=== PATIENT | male | born 1940 | race Caucasian/White ===

== ENCOUNTER 2020-06-14 08:08 | Emergency (ER) | payer MEDICARE, BC ==
[2020-06-14 08:39] VITALS: BP 127/65; PULSE 73
--- NOTE | 2020-06-14 08:45 | EDM.PDOC ---
<Harjit Holguin P - Last Filed: 06/14/20 09:11> ED HPI GENERAL MEDICAL PROBLEM - General Chief Complaint: Lower Extremity Injury/Pain Stated Complaint: pain in both legs Time Seen by Provider: 06/14/20 08:20 Source of Information: Reports: Patient, Family History Limitations: Reports: No Limitations - History of Present Illness INITIAL COMMENTS - FREE TEXT/NARRATIVE: Patient and state that his lower legs have been swelling intermittently for the last couple of weeks he saw his primary care provider Juan Francisco Sesay on Wednesday he had blood work and was given some water pills which patient said does not help with the swelling they have gotten worse in the last couple of days and is noticed that they have had redness as well that is starting to spread and increase with a little bit heat to the area. Patient states approximately 2-1/2 weeks ago that he had a infection and swelling in his hand where he was given antibiotics and it seemed to clear up but about 2 days ago he had a red patch on the bottom side of his arm start up again as well. He denies any fever chills or fatigue or feeling bad he states is just the swelling overall that is gotten worried he denies any chest pain or shortness of breath orthopnea or PND Been eating drinking normally with no issues Duration: Day(s): Location: Reports: Lower Extremity, Left, Lower Extremity, Right Severity: Mild Improves with: Reports: None Worsens with: Reports: None Associated Symptoms: Reports: No Other Symptoms, Rash. 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 ) Bilateral Lower Leg Pain Score (Numeric/FACES): 8 - Related Data Allergies Allergy/AdvReac Type Severity Reaction Status Date / Time No Known Allergies Allergy Verified 06/14/20 08:21 Home Meds: Home Meds Alum Hydrox/Mag Hydrox/Simeth [Maalox Advanced] 5 ml PO Q4H PRN 03/12/14 [History] Calcium Carbonate [Calcium] 500 mg PO DAILY 03/12/14 [History] Cholecalciferol (Vitamin D3) [Vitamin D3] 5,000 unit PO DAILY 03/12/14 [History] Docusate Sodium [Colace] 100 mg PO BID 03/12/14 [History] Esomeprazole [NexIUM] 40 mg PO DAILY 03/12/14 [History] Metoprolol Tartrate [Lopressor] 12.5 mg PO BEDTIME 03/12/14 [History] Nitroglycerin [Nitrostat] 0.4 mg SL ASDIRECTED PRN 03/12/14 [History] azaTHIOprine [Imuran] 150 mg PO BID 03/12/14 [History] Propylene Glycol/PEG 400/Pf [Systane 0.3-0.4% Eye Drops] 1 drop EYEBOTH Q4H PRN 09/29/16 [History] Cyanocobalamin (Vitamin B-12) [B-12] 1,000 mcg PO DAILY 03/12/17 [History] Hydrocodone/Acetaminophen [Hydrocodon-Acetaminophn 10-325] 1 tab PO Q4H PRN 03/12/17 [History] Oxybutynin [Oxybutynin ER] 15 mg PO DAILY 09/21/18 [History] Warfarin [Coumadin] 1 tab PO DAILY 09/21/18 [History] atorvaSTATin Calcium [Lipitor] 1 tab PO DAILY 09/21/18 [History] valACYclovir HCl [Valtrex] 1 tab PO BID 09/21/18 [History] Ascorbic Acid 500 mg PO DAILY 02/15/19 [History] Venetoclax [Venclexta] 200 mg PO DAILY 02/15/19 [History] Past Medical History HEENT History: Reports: Cataract Other HEENT History: TEAR FILM INSUFFICIENCY. HYPERMETROPIA. PRESBYOPIA Cardiovascular History: Reports: Afib, High Cholesterol, Hypertension Other Cardiovascular History: tricuspid insufficiency. ANKLE EDEMA. CORONARY ARTHEROSCLEROSIS. CAROTID STENOSIS Respiratory History: Reports: COPD, Sleep Apnea Other Respiratory History: EXERTIONAL DYSPNEA. LOCULATED PLEURAL EFFUSION Gastrointestinal History: Reports: Colon Polyp, GI Bleed Other Gastrointestinal History: GASTRIC ULCER Genitourinary History: Reports: BPH Other Genitourinary History: URINARY URGENCY Musculoskeletal History: Reports: Arthritis Other Musculoskeletal History: OSTEOPENIA. RIGHT KNEE PAIN. SI PAIN. DEGENERATIVE JOINT DISEASE. SACROILIITIS. DEGENERATIVE LUMBAR SPINAL STENOSIS Neurological History: Reports: None Other Neuro History: POLYNEUROPATHY. SHINGLES. POLYNEUROPATHY. BENIGN THYMOMA. MYASTHENIA GRAVIS Other Psychiatric History: CHRONIC FATIGUE. OBESITY Endocrine/Metabolic History: Reports: Diabetes, Type II Other Endocrine/Metabolic History: GLUCOSE INTOLERANCE Hematologic History: Reports: Anemia, B12 Deficiency, Other (See Below) Other Hematologic History: lymphadenopathy noted on MRI. macrocytic anemia. anemia in neoplastic disease. 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 Other Dermatologic History: ACTINIC KERATOSES - Past Surgical History Head Surgeries/Procedures: Reports: None HEENT Surgical History: Reports: Adenoidectomy, Tonsillectomy Cardiovascular Surgical History: Reports: Coronary Artery Bypass GI Surgical History: Reports: Appendectomy, Cholecystectomy Other Neurological Surgeries/Procedures: THYMECTOMY Musculoskeletal Surgical History: Reports: Knee Replacement Other Musculoskeletal Surgeries/Procedures:: laminectomy Social & Family History - Family History Cardiac: Reports: CAD, Hypertension, [place] Endocrine/Metabolic: Reports: Diabetes, type II ED ROS GENERAL - Review of Systems Review Of Systems: See Below Constitutional: Reports: No Symptoms. Denies: Fever, Chills, Malaise, Weakness, Decreased Appetite, Weight Loss, Weight Gain HEENT: Reports: No Symptoms Respiratory: Reports: No Symptoms Cardiovascular: Reports: No Symptoms Endocrine: Reports: No Symptoms GI/Abdominal: Reports: No Symptoms : Reports: No Symptoms Musculoskeletal: Reports: Other (Bilateral leg swelling) Skin: Reports: Rash, Erythema Neurological: Reports: No Symptoms Psychiatric: Reports: No Symptoms Hematologic/Lymphatic: Reports: No Symptoms, Other (PT with a history of CLL) ED EXAM, GENERAL - Physical Exam Exam: See Below Exam Limited By: No Limitations General Appearance: Alert, WD/WN, No Apparent Distress, Other (Patient is alert oriented x4 with normal conversation logical thought process very friendly answers all questions follows all commands) Nose: Normal Inspection, Normal Mucosa, No Blood Throat/Mouth: Normal Inspection, Normal Lips, Normal Teeth, Normal Gums, Normal Oropharynx, Normal Voice, No Airway Compromise Head: Atraumatic, Normocephalic Neck: Normal Inspection, Supple, Non-Tender, Full Range of Motion Respiratory/Chest: No Respiratory Distress, Lungs Clear, Normal Breath Sounds, No Accessory Muscle Use, Chest Non-Tender Cardiovascular: Normal Peripheral Pulses, Regular Rate, Rhythm, No Gallop, No JVD, No Murmur, No Rub. No: No Edema GI/Abdominal: Normal Bowel Sounds, Soft, Non-Tender, No Organomegaly, No Distention Extremities: Normal Range of Motion, Normal Capillary Refill, Other (Patient has bilateral +1 pedal edema to the feet and legs with noted diffuse maculopapular rash across the feet up to the midline of the ankles although the left has noted streaking from the ankle up the lateral and posterior part of the calf midway the calf is equal to the right there is no excessive edema there is no tenderness to palpation over the posterior aspect there is no adenopathy noted patient is currently on Coumadin secondary to a history of A. fib in the past). No: Normal Inspection, Non-Tender, No Pedal Edema Neurological: Alert, Oriented, CN II-XII Intact, Normal Cognition, Normal Gait, No Motor/Sensory Deficits Psychiatric: Normal Affect, Normal Mood Skin Exam: Warm, Dry, Intact, Normal Color, Erythema. No: No Rash Lymphatic: No Adenopathy Course - Vital Signs Text/Narrative:: CBC BMP coags blood cultures x2 CBC BMP within normal limits patient has a history of CLL Patient is not therapeutic on Coumadin and at this time with the signs and symptoms of possible DVT to the left lower extremity I will send him for outpatient ultrasound at [place] he has one scheduled at 130 today. This is also secondary to the patient does not wish to take any extra medicine such as a Lovenox bridge until Wednesday INR 1.8 patient was instructed to take 1 extra pill of warfarin today and 1 and half extra tablets Wednesday and rechecked Wednesday Patient and agree with disposition further imaging state they will follow- up with her primary care provider or return to emergency room if anything gets worse Departure - Departure Time of Disposition: 15:00 Disposition: Home, Self-Care 01 Condition: Good Clinical Impression: Phlebitis, Pedal edema, Subtherapeutic international normalized ratio (INR) - Discharge Information Instructions: Phlebitis, [id number] Referrals: Renetta Sesay, [Primary Care Provider] - Forms: ED Department Discharge Additional Instructions: Go to [facility] go to the radiological department for an ultrasound of your left leg at 1:30 PM today do not miss this appointment. Take all medication as directed start your doxycycline 100 mg 1 p.o. every 12 hours for 12 days make sure you take your Lasix as directed by your primary care provider Finish all antibiotics Follow-up with your primary care doctor Wednesday Return to the emergency room if anything changes or gets worse Sepsis Event Note (ED) - Evaluation Sepsis Screening Result: No Definite Risk - Problem List & Annotations (1) Pedal edema SNOMED Code(s): 700644967 Code(s): R60.0 - LOCALIZED EDEMA Status: Acute (2) Phlebitis SNOMED Code(s): 73049161 Code(s): I80.9 - PHLEBITIS AND THROMBOPHLEBITIS OF UNSPECIFIED SITE Status: Acute (3) Subtherapeutic international normalized ratio (INR) SNOMED Code(s): 049452026, 529695129 Code(s): R79.1 - ABNORMAL COAGULATION PROFILE Status: Acute <Harjit Ross - Last Filed: 06/14/20 14:56> Course - Vital Signs Last Recorded V/S: Last Vital Signs Temp 98.4 F 06/14/20 08:26 Pulse 73 06/14/20 08:26 Resp 18 06/14/20 08:26 BP 127/65 06/14/20 08:26 Pulse Ox 96 06/14/20 08:26 - Orders/Labs/Meds Orders: Active Orders 24 hr Category Date Time Status CULTURE BLOOD [BC] Stat Lab 06/14/20 08:32 Results CULTURE BLOOD [BC] Stat Lab 06/14/20 08:39 Received Labs: Laboratory Tests 06/14/20 06/14/20 06/14/20 Range/Units 08:32 08:32 08:32 WBC 4.2 (4.0-10.0) x10^3/uL RBC 3.77 L (4.5-6.0) x10^6/uL Hgb 13.4 L (14.0-18.0) g/dL Hct 38.1 L (40.0-52.0) % MCV 101.1 H (78.0-93.0) fL MCH 35.5 H (26.0-32.0) pg MCHC 35.2 (32.0-36.0) g/dL RDW Coeff of Bonnie 13.3 (10.0-15.0) % Plt Count 92 L (130-400) x10^3/uL Neut % (Auto) 62.6 (50.0-80.0) % Lymph % (Auto) 20.9 L (25.0-50.0) % [place] % (Auto) 16.3 H (2.0-11.0) % Eos % (Auto) 0.0 (0.0-4.0) % Baso % (Auto) 0.2 (0.2-1.2) % PT 19.5 H (9.5-12.3) SEC INR 1.8 L (2.0-3.5) Sodium 141 (136-145) mmol/L Potassium 3.7 (3.5-5.1) mmol/L Chloride 104 (98-107) mmol/L Carbon Dioxide 31 (21-32) mmol/L Anion Gap 9.7 L (10-20) mmol/L BUN 16 (7-18) mg/dL Creatinine 0.8 (0.70-1.30) mg/dL Est Cr Clr Drug Dosing 80.45 mL/min Estimated GFR (MDRD) > 60 Glucose 117 H (74-106) mg/dL Calcium 8.3 L (8.5-10.1) mg/dL - Re-Assessments/Exams Free Text/Narrative Re-Assessment/Exam: 06/14/20 14:56 I followed up after the patient was discharged and his Venous Duplex lower extremity Left was negative for thrombus. I called and updated the patient as well. Sepsis Event Note (ED) - Focused Exam Vital Signs: Vital Signs Temp Pulse Resp BP Pulse Ox 06/14/20 08:26 98.4 F 73 18 127/65 96
[2020-06-14 08:58] LABS: ANION GAP 9.7 mmol/L (10-20); CHLORIDE,CL 104 mmol/L (98-107); SODIUM,NA 141 mmol/L (136-145)
== END 2020-06-14 09:27 | disposition home or self-care (01) ==
LOC: VM.ED 08:08
DX: I80.9 Phlebitis and thrombophlebitis of unspecified site (principal); R79.1 Abnormal coagulation profile; I10 Essential (primary) hypertension; E78.00 Pure hypercholesterolemia, unspecified; I48.91 Unspecified atrial fibrillation; J45.909 Unspecified asthma, uncomplicated; E11.9 Type 2 diabetes mellitus without complications; E11.42 Type 2 diabetes mellitus with diabetic polyneuropathy; Z79.01 Long term (current) use of anticoagulants; Z79.899 Other long term (current) drug therapy
CPT/HCPCS: 36415; 80048; 85025; 85610; 87040; 99283; 99284-GF

== ENCOUNTER 2020-10-16 16:33 | Emergency (ER) | payer MEDICARE, BC ==
[2020-10-16] MEDS ORDERED: Sodium Chloride 0.9% 10 ML Syringe FLUSH PRN (17:23)
--- NOTE | 2020-10-16 17:55 | CR ---
[id number] RAD/RAD Chest PA And Lateral EXAM: RAD Chest PA And Lateral INDICATION: CP, SHORT OF BREATH. COMPARISON: Multiple prior CT examinations, most recent from August 30, 2020. Most recent radiograph from August 09, 2020. DISCUSSION: Increasing left midlung and right lung base opacification compared to prior radiograph in July 2020. Additionally, there is blunting of the bilateral costophrenic sulci, consistent with small effusions. CT from August 30, 2020 demonstrated opacification in the left upper and lower lobes as well as a small right pleural effusion. 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 IMPRESSION: Worsening bilateral airspace disease and compared to CT from August 2020. Other findings are described above. Frank Manuel MD 10/16/20 [id number] Thank you for allowing us to participate in the care of your patient.
[2020-10-16 17:57] LABS: CHLORIDE,CL 102 mmol/L (98-107); SODIUM,NA 137 mmol/L (136-145)
[2020-10-16 17:59] LABS: ANION GAP 11.5 mmol/L (10-20)
[2020-10-16] MEDS ORDERED: Furosemide 40 MG/4 ML VIAL IV ONE (18:18)
[2020-10-16] MEDS ORDERED: Doxycycline 100 MG Cap PO ONE (18:18)
[2020-10-16 18:34] LABS: PTT,PARTIAL THROMBOPLSTIN TIME 53.2 SEC (25.6-32.8)
[2020-10-16 18:35] VITALS: BP 137/68; PULSE 101
--- NOTE | 2020-10-16 19:01 | EDM.PDOC ---
ED HPI GENERAL MEDICAL PROBLEM - General Chief Complaint: Respiratory Problem Stated Complaint: SOB, BODY ACHES, FEVER, CHILLS, CHEST HURTING Time Seen by Provider: 10/16/20 16:40 Source of Information: Reports: Patient History Limitations: Reports: No Limitations - History of Present Illness INITIAL COMMENTS - FREE TEXT/NARRATIVE: Patient comes emergency department today with complaints of fever and shortness of breath. Patient has a history of CLL. Since Wednesday he has had fever over the weekend. He has generalized malaise and fatigue and some body aches. He has had increasing shortness of breath over the week to the point where he is short of breath at rest. He has noticed quite a bit of swelling to his bilateral lower extremities more on the right than the left which is chronic for him. He denies any pain in his lower extremities. He denies any pain in his chest. He denies any syncope or palpitations. He has checked his fever at home and has been up to 102 has been taking Tylenol with improvement of it. He did have a Covid test in the clinic on Wednesday but he has not received his results. He has no loss of taste or smell. No abdominal pain nausea or vomiting. No hematuria dysuria or urinary frequency. No diarrhea. He has no rash. Denies any Covid exposure. No sore throat. He did get his influenza vaccine this year. He relates that this feels just like a pneumonia that he had about 3 months ago. - Related Data Allergies Allergy/AdvReac Type Severity Reaction Status Date / Time No Known Allergies Allergy Verified 10/16/20 17:10 Home Meds: Home Meds Alum Hydrox/Mag Hydrox/Simeth [Maalox Advanced] 5 ml PO Q4H PRN 03/12/14 [History] Cholecalciferol (Vitamin D3) [Vitamin D3] 5,000 unit PO DAILY 03/12/14 [History] Docusate Sodium [Colace] 100 mg PO DAILY PRN 03/12/14 [History] Esomeprazole [NexIUM] 40 mg PO ASDIRECTED 03/12/14 [History] Metoprolol Tartrate [Lopressor] 12.5 mg PO BEDTIME 03/12/14 [History] Nitroglycerin [Nitrostat] 0.4 mg SL ASDIRECTED PRN 03/12/14 [History] azaTHIOprine [Imuran] 150 mg PO BID 03/12/14 [History] Propylene Glycol/PEG 400/Pf [Systane 0.3-0.4% Eye Drops] 1 drop EYEBOTH Q4H PRN 09/29/16 [History] Cyanocobalamin (Vitamin B-12) [B-12] 1,000 mcg PO DAILY 03/12/17 [History] Hydrocodone/Acetaminophen [Hydrocodon-Acetaminophn 10-325] 1 tab PO Q4H PRN 03/12/17 [History] Oxybutynin [Oxybutynin ER] 15 mg PO DAILY 09/21/18 [History] Warfarin [Coumadin] 1 tab PO DAILY 09/21/18 [History] atorvaSTATin Calcium [Lipitor] 1 tab PO DAILY 09/21/18 [History] valACYclovir HCl [Valtrex] 1 tab PO BID 09/21/18 [History] Acalabrutinib [Calquence] 100 mg PO BID 10/16/20 [History] Ascorbic Acid [Vitamin C] 500 mg PO DAILY 10/16/20 [History] Calcium Carbonate/Vitamin D3 [Oyster Shell Calcium-Vit D Tab] 1 each PO DAILY 10/16/20 [History] Diphenoxylate HCl/Atropine [Lomotil] 1 tab PO Q6H PRN 10/16/20 [History] Doxycycline [Vibramycin] 100 mg PO BID #20 cap 10/16/20 [Rx] Furosemide [Lasix] 20 mg PO DAILY #2 tab 10/16/20 [Rx] Multivitamin [Multivitamins] 1 each PO DAILY 10/16/20 [History] Ondansetron [Ondansetron ODT] 4 mg PO Q6H PRN 10/16/20 [History] Phytonadione [Vitamin K] 100 mcg PO ASDIRECTED 10/16/20 [History] Prochlorperazine [Compazine] 10 mg PO Q6H PRN 10/16/20 [History] Past Medical History HEENT History: Reports: Cataract Other HEENT History: TEAR FILM INSUFFICIENCY. HYPERMETROPIA. PRESBYOPIA Cardiovascular History: Reports: Afib, High Cholesterol, Hypertension Other Cardiovascular History: tricuspid insufficiency. ANKLE EDEMA. CORONARY ARTHEROSCLEROSIS. CAROTID STENOSIS Respiratory History: Reports: COPD, Sleep Apnea Other Respiratory History: EXERTIONAL DYSPNEA. LOCULATED PLEURAL EFFUSION Gastrointestinal History: Reports: Colon Polyp, GI Bleed Other Gastrointestinal History: GASTRIC ULCER Genitourinary History: Reports: BPH Other Genitourinary History: URINARY URGENCY Musculoskeletal History: Reports: Arthritis Other Musculoskeletal History: OSTEOPENIA. RIGHT KNEE PAIN. SI PAIN. DEGENERATIVE JOINT DISEASE. SACROILIITIS. DEGENERATIVE LUMBAR SPINAL STENOSIS Neurological History: Reports: None Other Neuro History: POLYNEUROPATHY. SHINGLES. POLYNEUROPATHY. BENIGN THYMOMA. MYASTHENIA GRAVIS Other Psychiatric History: CHRONIC FATIGUE. OBESITY Endocrine/Metabolic History: Reports: Diabetes, Type II Other Endocrine/Metabolic History: GLUCOSE INTOLERANCE Hematologic History: Reports: Anemia, B12 Deficiency, Other (See Below) Other Hematologic History: lymphadenopathy noted on MRI. macrocytic anemia. anemia in neoplastic disease. 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 Other Dermatologic History: ACTINIC KERATOSES - Past Surgical History Head Surgeries/Procedures: Reports: None HEENT Surgical History: Reports: Adenoidectomy, Tonsillectomy Cardiovascular Surgical History: Reports: Coronary Artery Bypass GI Surgical History: Reports: Appendectomy, Cholecystectomy Other Neurological Surgeries/Procedures: THYMECTOMY Musculoskeletal Surgical History: Reports: Knee Replacement Other Musculoskeletal Surgeries/Procedures:: laminectomy Social & Family History - Family History Family Medical History: No Pertinent Family History Cardiac: Reports: CAD, Hypertension, [place] Endocrine/Metabolic: Reports: Diabetes, type II - Tobacco Use Tobacco Use Status *Q: Unknown Ever Used Tobacco - Caffeine Use Caffeine Use: Reports: None ED ROS GENERAL - Review of Systems Review Of Systems: Comprehensive ROS is negative, except as noted in HPI. ED EXAM, GENERAL - Physical Exam Exam: See Below Exam Limited By: No Limitations General Appearance: Alert, WD/WN, No Apparent Distress Eye Exam: Bilateral Eye: EOMI, PERRL Ears: Normal External Exam, Normal TMs Nose: Normal Inspection, Normal Mucosa Throat/Mouth: Normal Inspection, Normal Lips, Normal Oropharynx Head: Atraumatic, Normocephalic Neck: Normal Inspection, Supple, Non-Tender Respiratory/Chest: No Respiratory Distress, Chest Non-Tender, Decreased Breath Sounds (Left mid lobe), Crackles (Fine inspiratory opening crackles on the left none on the right), Wheezing (Mild expiratory wheezing on the left none on the right.). No: Rhonchi Cardiovascular: Normal Peripheral Pulses, Regular Rate, Rhythm Peripheral Pulses: 2+: Radial (L), Radial (R), Posterior Tibial (L), Posterior Tibial (R), Dorsalis Pedis (L), Dorsalis Pedis (R) GI/Abdominal: Normal Bowel Sounds, Soft, Non-Tender (Male) Exam: Deferred Rectal (Males) Exam: Deferred Back Exam: Normal Inspection, Full Range of Motion Extremities: Normal Inspection, Normal Range of Motion, Normal Capillary Refill, Pedal Edema (1+ left lower extremity 2+ right lower extremity no tenderness erythema injection. Negative Homans' sign bilaterally.) Neurological: Alert, CN II-XII Intact, Normal Cognition, Normal Reflexes, No Motor/Sensory Deficits Psychiatric: Normal Affect, Normal Mood Skin Exam: Warm, Dry, Normal Color, No Rash #1 Interpretation EKG Date: 10/16/20 Time: 08:10 Rhythm: NSR Rate (Beats/Min): 103 [place]: Normal P-Wave: Present QRS: RBBB ST-T: Normal QT: Normal Comparison: No Change Course - Vital Signs Last Recorded V/S: Last Vital Signs Temp 99.7 F 10/16/20 18:17 Pulse 101 H 10/16/20 18:17 Resp 22 H 10/16/20 18:17 BP 137/68 10/16/20 18:17 Pulse Ox 96 10/16/20 18:17 - Orders/Labs/Meds Orders: Active Orders 24 hr Category Date Time Status CULTURE BLOOD [BC] Stat Lab 10/16/20 18:05 Received CULTURE BLOOD [BC] Stat Lab 10/16/20 18:09 Received PROCALCITONIN [REF] Stat Lab 10/16/20 16:40 Received Blood Culture x2 Reflex Set [OM.PC] Stat Oth 10/16/20 17:24 Ordered Peripheral IV Insertion Adult [OM.PC] Stat Oth 10/16/20 17:23 Ordered Labs: Laboratory Tests 10/16/20 10/16/20 10/16/20 Range/Units 16:40 16:40 16:40 WBC 15.7 H (4.0-10.0) x10^3/uL RBC 3.37 L (4.5-6.0) x10^6/uL Hgb 11.7 L D (14.0-18.0) g/dL Hct 36.1 L (40.0-52.0) % MCV 107.1 H D (78.0-93.0) fL MCH 34.7 H (26.0-32.0) pg MCHC 32.4 (32.0-36.0) g/dL RDW Coeff of Bonnie 14.4 (10.0-15.0) % Plt Count 108 L (130-400) x10^3/uL Neut % (Auto) 75.0 (50.0-80.0) % Lymph % (Auto) 13.3 L (25.0-50.0) % [place] % (Auto) 11.3 H (2.0-11.0) % Eos % (Auto) 0.3 (0.0-4.0) % Baso % (Auto) 0.1 L (0.2-1.2) % PT (9.5-12.3) SEC INR (2.0-3.5) APTT (25.6-32.8) SEC Sodium 137 (136-145) mmol/L Potassium 3.5 (3.5-5.1) mmol/L Chloride 102 (98-107) mmol/L Carbon Dioxide 27 (21-32) mmol/L Anion Gap 11.5 (10-20) mmol/L BUN 17 (7-18) mg/dL Creatinine 1.0 (0.70-1.30) mg/dL Est Cr Clr Drug Dosing TNP Estimated GFR (MDRD) > 60 Glucose 107 H (74-106) mg/dL Lactic Acid 1.5 (0.4-2.0) mmol/L Calcium 8.6 (8.5-10.1) mg/dL Corrected Calcium 9.56 (8.5-10.1) mg/dL Total Bilirubin 0.8 (0.2-1.0) mg/dL AST 25 (15-37) U/L ALT 23 (16-63) U/L Alkaline Phosphatase 104 (46-116) U/L Troponin I < 0.017 (<=0.056) ng/mL C-Reactive Protein 32.7 H (<=0.9) mg/dL NT-Pro-B Natriuret Pep 3793 H (<=450) pg/mL Total Protein 6.8 (6.4-8.2) g/dL Albumin 2.8 L (3.4-5.0) g/dL Globulin 4.0 Albumin/Globulin Ratio 0.70 SARS CoV-2 RNA Rapid PINEDA (NEGATIVE) 10/16/20 10/16/20 Range/Units 16:50 16:50 WBC (4.0-10.0) x10^3/uL RBC (4.5-6.0) x10^6/uL Hgb (14.0-18.0) g/dL Hct (40.0-52.0) % MCV (78.0-93.0) fL MCH (26.0-32.0) pg MCHC (32.0-36.0) g/dL RDW Coeff of Bonnie (10.0-15.0) % Plt Count (130-400) x10^3/uL Neut % (Auto) (50.0-80.0) % Lymph % (Auto) (25.0-50.0) % [place] % (Auto) (2.0-11.0) % Eos % (Auto) (0.0-4.0) % Baso % (Auto) (0.2-1.2) % PT 32.4 H D (9.5-12.3) SEC INR 3.1 (2.0-3.5) APTT 53.2 H (25.6-32.8) SEC Sodium (136-145) mmol/L Potassium (3.5-5.1) mmol/L Chloride (98-107) mmol/L Carbon Dioxide (21-32) mmol/L Anion Gap (10-20) mmol/L BUN (7-18) mg/dL Creatinine (0.70-1.30) mg/dL Est Cr Clr Drug Dosing Estimated GFR (MDRD) Glucose (74-106) mg/dL Lactic Acid (0.4-2.0) mmol/L Calcium (8.5-10.1) mg/dL Corrected Calcium (8.5-10.1) mg/dL Total Bilirubin (0.2-1.0) mg/dL AST (15-37) U/L ALT (16-63) U/L Alkaline Phosphatase (46-116) U/L Troponin I (<=0.056) ng/mL C-Reactive Protein (<=0.9) mg/dL NT-Pro-B Natriuret Pep (<=450) pg/mL Total Protein (6.4-8.2) g/dL Albumin (3.4-5.0) g/dL Globulin Albumin/Globulin Ratio SARS CoV-2 RNA Rapid PINEDA Negative (NEGATIVE) Meds: Medications Discontinued Medications Generic Name Dose Route Start Last Admin Trade Name Freq PRN Reason Stop Dose Admin Doxycycline Hyclate 100 mg 10/16/20 18:18 10/16/20 18:32 Vibramycin PO 10/16/20 18:19 100 mg ONETIME ONE Administration Doxycycline Monohydrate 1 packet 10/16/20 19:05 10/16/20 19:08 Take Home: Doxycycline 100 Mg, 4 Tab Pack PO 10/16/20 19:06 1 packet ONETIME ONE Administration Furosemide 40 mg 10/16/20 18:18 10/16/20 18:32 Lasix IV 10/16/20 18:19 40 mg ONETIME ONE Administration Sodium Chloride 10 ml 10/16/20 17:23 Saline Flush FLUSH ASDIRECTED PRN Keep Vein Open - Radiology Interpretation Free Text/Narrative:: Chest x-ray per radiology shows increasing left midlung and right lung base opacification compared to prior radiograph in 1999. Small effusions bilaterally. - Re-Assessments/Exams Free Text/Narrative Re-Assessment/Exam: 10/16/20 Rapid Covid test was negative. The patient is not requiring any oxygenation. Labs are drawn. Chest x-ray per radiology shows worsening bilateral airspace disease when compared from CT of 2019 in August. White blood cell count of 15.7. INR 3.1. Troponin less than 0.017. CRP 32. Pro BNP 3793 has not had an elevated proBNP in her laboratory evaluation that I can find. Cultures pending x2. Procalcitonin pending. This patient clearly has recurrence of pneumonia bilaterally on his chest x-ray. His lactic acid is normal. He does have a history of CLL. His Covid screen is negative. He is not requiring any oxygen at this time. His proBNP is mildly elevated and he definitely has some edema in his lower extremities. He was given 40 mg of Lasix in the emergency department had quite a bit of urinary output and states that his shortness of breath was much improved. We will put him on a low-dose of Lasix 20 mg a day for the next 2 days and have him follow- up in the clinic in the near future. He is in no respiratory distress. We will start him on doxycycline 100 mg p.o. twice daily for the next 10 days. With his history of CLL I will have him follow-up closely in the clinic on Wednesday or Wednesday. Anything new or worse he is to recheck. He is comfortable with this plan and his questions are answered. 10/17/20 15:47 Departure - Departure Time of Disposition: 18:56 Disposition: Home, Self-Care 01 Clinical Impression: CLL (chronic lymphocytic leukemia) Pneumonia Qualifiers: Pneumonia type: due to unspecified organism Laterality: left Lung location: lower lobe of lung Qualified Code(s): J18.9 - Pneumonia, unspecified organism Congestive heart failure Qualifiers: Heart failure type: unspecified Heart failure chronicity: acute Qualified Code(s): I50.9 - Heart failure, unspecified - Discharge Information Prescriptions: Furosemide [Lasix] 20 mg PO DAILY #2 tab Doxycycline [Vibramycin] 100 mg PO BID #20 cap Instructions: Heart Failure, Self Care, [id number], Heart Failure, Diagnosis, [id number], Community-Acquired Pneumonia, Adult, [id number] Referrals: Renetta Sesay DO [Primary Care Provider] - Forms: ED Department Discharge Additional Instructions: Tylenol as needed for fever. Doxycyline, 1 tablet twice daily for the next 10 days. RX to [facility]. Dose for the morning sent home from the ED and RX sent to [facility]. Lasix 1 tablet daily 20mg for and wednesday. Recheck with Dr. Mae Zuñiga on wednesday. Call right away morning for an appointment. Return to the ED if new or worsening symptoms. Sepsis Event Note (ED) - Evaluation Sepsis Screening Result: No Definite Risk - My Orders Last 24 Hours: My Active Orders 10/16/20 16:40 PROCALCITONIN [REF] Stat 10/16/20 17:23 Peripheral IV Insertion Adult [OM.PC] Stat 10/16/20 17:24 Blood Culture x2 Reflex Set [OM.PC] Stat 10/16/20 18:05 CULTURE BLOOD [BC] Stat 10/16/20 18:09 CULTURE BLOOD [BC] Stat - Assessment/Plan Last 24 Hours: My Active Orders 10/16/20 16:40 PROCALCITONIN [REF] Stat 10/16/20 17:23 Peripheral IV Insertion Adult [OM.PC] Stat 10/16/20 17:24 Blood Culture x2 Reflex Set [OM.PC] Stat 10/16/20 18:05 CULTURE BLOOD [BC] Stat 10/16/20 18:09 CULTURE BLOOD [BC] Stat
[2020-10-16] MEDS ORDERED: Take Home: Doxycycline 100 MG Tab, 4 Tab Pack PO ONE (19:05)
== END 2020-10-16 19:23 | disposition home or self-care (01) ==
LOC: VM.ED 16:33
DX: J18.9 Pneumonia, unspecified organism (principal); C91.10 Chronic lymphocytic leukemia of B-cell type not having achieved remission; J44.9 Chronic obstructive pulmonary disease, unspecified; I50.9 Heart failure, unspecified; I48.91 Unspecified atrial fibrillation; E78.00 Pure hypercholesterolemia, unspecified; I10 Essential (primary) hypertension; E66.9 Obesity, unspecified; Z79.01 Long term (current) use of anticoagulants; Z79.899 Other long term (current) drug therapy; E11.40 Type 2 diabetes mellitus with diabetic neuropathy, unspecified; Z20.828 Contact with and (suspected) exposure to other viral communicable diseases
CPT/HCPCS: 36415; 71046; 80053; 83605; 83880; 84145; 84484; 85025; 85610; 85730; 86140; 87040; 93005; 93010; 96374; 99284; 99285; A9270; J1940; U0002

== ENCOUNTER 2021-07-06 10:36 | Emergency (ER) | payer MEDICARE, BC ==
--- NOTE | 2021-07-06 10:58 | EDM.PDOC ---
ED HPI GENERAL MEDICAL PROBLEM - General Chief Complaint: Respiratory Problem Stated Complaint: coughing Time Seen by Provider: 07/06/21 10:40 Source of Information: Reports: Patient History Limitations: Reports: No Limitations - History of Present Illness INITIAL COMMENTS - FREE TEXT/NARRATIVE: Patient comes in the emergency department with complaint of cough and congestion. Patient states that he has a longstanding history of community- acquired pneumonia and it normally comes on within 3 to 4 days of getting a cold. Patient states that he does not want to wait until he can see his primary care provider for he has a wedding next weekend that he does not want to miss. Patient states he has taken azithromycin in the past for pneumonia type symptoms. He states that he is got a progressive cough, coughing up green sputum, coughing more prevalent when laying down, coughing with deep inspiration, and is more rundown. He denies any shortness of breath, chest pain, fever, chills, decrease in appetite, or genitourinary concerns. Onset: Gradual Quality: Reports: Other Severity: Mild Improves with: Reports: Rest Worsens with: Reports: Movement Context: Reports: Other Associated Symptoms: Reports: Cough, cough w sputum. Denies: Diaphoresis, Fever/Chills, Headaches, Loss of Appetite, Nausea/Vomiting, Shortness of Breath, Syncope - Related Data Allergies Allergy/AdvReac Type Severity Reaction Status Date / Time No Known Allergies Allergy Verified 10/16/20 17:10 Home Meds: Home Meds Alum Hydrox/Mag Hydrox/Simeth [Maalox Advanced] 5 ml PO Q4H PRN 03/12/14 [History] Cholecalciferol (Vitamin D3) [Vitamin D3] 5,000 unit PO DAILY 03/12/14 [History] Docusate Sodium [Colace] 100 mg PO DAILY PRN 03/12/14 [History] Esomeprazole [NexIUM] 40 mg PO ASDIRECTED 03/12/14 [History] Metoprolol Tartrate [Lopressor] 12.5 mg PO BEDTIME 03/12/14 [History] Nitroglycerin [Nitrostat] 0.4 mg SL ASDIRECTED PRN 03/12/14 [History] azaTHIOprine [Imuran] 150 mg PO BID 03/12/14 [History] Propylene Glycol/PEG 400/Pf [Systane 0.3-0.4% Eye Drops] 1 drop EYEBOTH Q4H PRN 09/29/16 [History] Cyanocobalamin (Vitamin B-12) [B-12] 1,000 mcg PO DAILY 03/12/17 [History] Hydrocodone/Acetaminophen [Hydrocodon-Acetaminophn 10-325] 1 tab PO Q4H PRN 03/12/17 [History] Oxybutynin [Oxybutynin ER] 15 mg PO DAILY 09/21/18 [History] Warfarin [Coumadin] 1 tab PO DAILY 09/21/18 [History] atorvaSTATin Calcium [Lipitor] 1 tab PO DAILY 09/21/18 [History] valACYclovir HCl [Valtrex] 1 tab PO BID 09/21/18 [History] Acalabrutinib [Calquence] 100 mg PO BID 10/16/20 [History] Ascorbic Acid [Vitamin C] 500 mg PO DAILY 10/16/20 [History] Calcium Carbonate/Vitamin D3 [Oyster Shell Calcium-Vit D Tab] 1 each PO DAILY 10/16/20 [History] Diphenoxylate HCl/Atropine [Lomotil] 1 tab PO Q6H PRN 10/16/20 [History] Doxycycline [Vibramycin] 100 mg PO BID #20 cap 10/16/20 [Rx] Furosemide [Lasix] 20 mg PO DAILY #2 tab 10/16/20 [Rx] Multivitamin [Multivitamins] 1 each PO DAILY 10/16/20 [History] Ondansetron [Ondansetron ODT] 4 mg PO Q6H PRN 10/16/20 [History] Phytonadione [Vitamin K] 100 mcg PO ASDIRECTED 10/16/20 [History] Prochlorperazine [Compazine] 10 mg PO Q6H PRN 10/16/20 [History] Azithromycin 500 mg PO DAILY 5 Days #5 tablet 07/06/21 [Rx] Past Medical History HEENT History: Reports: Cataract Other HEENT History: TEAR FILM INSUFFICIENCY. HYPERMETROPIA. PRESBYOPIA Cardiovascular History: Reports: Afib, High Cholesterol, Hypertension Other Cardiovascular History: tricuspid insufficiency. ANKLE EDEMA. CORONARY ARTHEROSCLEROSIS. CAROTID STENOSIS Respiratory History: Reports: COPD, Sleep Apnea Other Respiratory History: EXERTIONAL DYSPNEA. LOCULATED PLEURAL EFFUSION Gastrointestinal History: Reports: Colon Polyp, GI Bleed Other Gastrointestinal History: GASTRIC ULCER Genitourinary History: Reports: BPH Other Genitourinary History: URINARY URGENCY Musculoskeletal History: Reports: Arthritis Other Musculoskeletal History: OSTEOPENIA. RIGHT KNEE PAIN. SI PAIN. DEGENERATIVE JOINT DISEASE. SACROILIITIS. DEGENERATIVE LUMBAR SPINAL STENOSIS Neurological History: Reports: None Other Neuro History: POLYNEUROPATHY. SHINGLES. POLYNEUROPATHY. BENIGN THYMOMA. MYASTHENIA GRAVIS Other Psychiatric History: CHRONIC FATIGUE. OBESITY Endocrine/Metabolic History: Reports: Diabetes, Type II Other Endocrine/Metabolic History: GLUCOSE INTOLERANCE Hematologic History: Reports: Anemia, B12 Deficiency, Other (See Below) Other Hematologic History: lymphadenopathy noted on MRI. macrocytic anemia. anemia in neoplastic disease. 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 Other Dermatologic History: ACTINIC KERATOSES - Past Surgical History Head Surgeries/Procedures: Reports: None HEENT Surgical History: Reports: Adenoidectomy, Tonsillectomy Cardiovascular Surgical History: Reports: Coronary Artery Bypass GI Surgical History: Reports: Appendectomy, Cholecystectomy Other Neurological Surgeries/Procedures: THYMECTOMY Musculoskeletal Surgical History: Reports: Knee Replacement Other Musculoskeletal Surgeries/Procedures:: laminectomy Social & Family History - Family History Family Medical History: No Pertinent Family History Cardiac: Reports: CAD, Hypertension, [place] Endocrine/Metabolic: Reports: Diabetes, type II - Caffeine Use Caffeine Use: Reports: None ED ROS GENERAL - Review of Systems Review Of Systems: Comprehensive ROS is negative, except as noted in HPI. Constitutional: Reports: Malaise HEENT: Reports: No Symptoms Respiratory: Reports: Cough, Sputum Cardiovascular: Reports: No Symptoms Endocrine: Reports: No Symptoms GI/Abdominal: Reports: No Symptoms : Reports: No Symptoms Musculoskeletal: Reports: No Symptoms Skin: Reports: No Symptoms Neurological: Reports: No Symptoms Psychiatric: Reports: No Symptoms Hematologic/Lymphatic: Reports: No Symptoms Immunologic: Reports: No Symptoms ED EXAM, GENERAL - Physical Exam Exam: See Below Exam Limited By: No Limitations General Appearance: Alert, WD/WN, No Apparent Distress Head: Atraumatic, Normocephalic Neck: Normal Inspection, Supple, Non-Tender, Full Range of Motion Respiratory/Chest: No Respiratory Distress, Decreased Breath Sounds (left base ). No: Crackles, Rales, Wheezing, Stridor, Pleural Rub, Accessory Muscle Use, Retractions Cardiovascular: Normal Peripheral Pulses, Regular Rate, Rhythm GI/Abdominal: Normal Bowel Sounds, Soft, Non-Tender Back Exam: Normal Inspection, Full Range of Motion Extremities: Normal Inspection, Normal Range of Motion, Non-Tender, Normal Capillary Refill Neurological: Alert, Oriented, Normal Cognition, Normal Gait Psychiatric: Normal Affect, Normal Mood Skin Exam: Warm, Dry, Intact, Normal Color Course - Orders/Labs/Meds Meds: Medications Discontinued Medications Generic Name Dose Route Start Last Admin Trade Name Brady PRN Reason Stop Dose Admin Ceftriaxone Sodium 1 gm/ 0 gm 07/06/21 10:51 Lidocaine HCl 2.1 ml IM 07/06/21 10:52 ONETIME ONE Departure - Departure Time of Disposition: 11:00 Disposition: Home, Self-Care 01 Condition: Good Clinical Impression: Pneumonia Qualifiers: Pneumonia type: due to unspecified organism Laterality: unspecified laterality Lung location: unspecified part of lung Qualified Code(s): J18.9 - Pneumonia, unspecified organism - Discharge Information *PRESCRIPTION DRUG MONITORING PROGRAM REVIEWED*: Not Applicable *COPY OF PRESCRIPTION DRUG MONITORING REPORT IN PATIENT HOLDEN: Not Applicable Prescriptions: Azithromycin 500 mg PO DAILY 5 Days #5 tablet Instructions: Azithromycin tablets, Community-Acquired Pneumonia, Adult, [id number] Forms: ED Department Discharge Additional Instructions: 1. rest 2. increase your water intake 3. Take all antibiotics as prescribed even if feeling better 4. Take a probiotic while on antibiotics to help promote healthy GI motility 5. Activity and diet as tolerated 6. Can use Ibuprofen and tylenol for any fever or discomfort 7. Follow up with your PCP or return if symptoms progress or worsen 8. Education provided to you regarding your illness, probiotics, antibiotic prescribed 9. Call with any questions or concerns - Assessment/Plan Assessment:: 1. cough 2. Community acquired pneumonia Plan: 1. Rocephin IM in clinic today 2. Azithromycin script sent to the pharmacy 3. Patient and nursing staff was updated regarding the plan of care 4. Education provided the patient regarding activity, diet, rest, over-the- counter medication modalities, and follow-up care was provided 5. Patient and family are agreeable to the above plan of care 6. All questions and concerns were addressed with the patient and family prior to discharge
[2021-07-06] MEDS: cefTRIAXone 1 GM, Lidocaine 1% 2.1 ML IM ONE ×2 (11:16)
[2021-07-07 14:59] VITALS: BP 126/71; PULSE 69
== END 2021-07-06 11:26 | disposition home or self-care (01) ==
LOC: VM.ED 10:36
DX: J18.9 Pneumonia, unspecified organism (principal); E78.00 Pure hypercholesterolemia, unspecified; I10 Essential (primary) hypertension; E11.40 Type 2 diabetes mellitus with diabetic neuropathy, unspecified; E66.9 Obesity, unspecified; Z68.23 Body mass index [BMI] 23.0-23.9, adult; Z79.899 Other long term (current) drug therapy
CPT/HCPCS: 96372; 99283; 99284; J0696

== ENCOUNTER 2022-07-18 13:39 | Emergency (ER) | payer MEDICARE, BC ==
[2022-07-18 14:36] LABS: CHLORIDE,CL 103 mmol/L (98-107); SODIUM,NA 139 mmol/L (136-145)
[2022-07-18 14:37] LABS: ANION GAP 12.2 mmol/L (5-15); ESTIMATED GFR 84 mL/min (>=60)
[2022-07-18 15:12] VITALS: BP 129/62; PULSE 70
== END 2022-07-18 15:05 | disposition home or self-care (01) ==
LOC: VM.ED 13:39
DX: R31.9 Hematuria, unspecified (principal); I48.91 Unspecified atrial fibrillation; E78.00 Pure hypercholesterolemia, unspecified; I10 Essential (primary) hypertension; E11.9 Type 2 diabetes mellitus without complications; E66.9 Obesity, unspecified; Z68.30 Body mass index [BMI] 30.0-30.9, adult; Z79.899 Other long term (current) drug therapy
CPT/HCPCS: 36415; 80053; 81001; 85025; 86140; 99283; 99284

== ENCOUNTER 2022-08-13 09:14 | Emergency (ER) | payer MEDICARE, BC ==
[2022-08-13] MEDS ORDERED: Glucagon,Human Recombinant 1 MG Vial IV ONE (09:20)
[2022-08-13 17:40] VITALS: BP 115/56; PULSE 81
== END 2022-08-13 09:42 | disposition home or self-care (01) ==
LOC: VM.ED 09:14
DX: T18.9XXA Foreign body of alimentary tract, part unspecified, initial encounter (principal); J44.9 Chronic obstructive pulmonary disease, unspecified; E78.00 Pure hypercholesterolemia, unspecified; I10 Essential (primary) hypertension; E11.9 Type 2 diabetes mellitus without complications; E66.9 Obesity, unspecified; Z68.23 Body mass index [BMI] 23.0-23.9, adult; Z79.899 Other long term (current) drug therapy; Z90.49 Acquired absence of other specified parts of digestive tract
CPT/HCPCS: 96374; 99283; J1610

== ENCOUNTER 2023-08-21 11:11 | Emergency (ER) | payer MEDICARE, BC ==
[2023-08-21] MEDS ORDERED: Acetaminophen/HYDROcodone 325-10 MG Tab PO ONE (11:25)
[2023-08-21 11:30] VITALS: BP 136/59; PULSE 88
[2023-08-21 11:38] LABS: BASOPHILS PERCENT AUTO 0.5 % (0.2-1.2); EOSINOPHILS PERCENT AUTO 1.1 % (0.0-4.0); HEMATOCRIT 27.7 % (40.0-52.0); IMMATURE GRAN ABSOLUTE AUTO 0.06 x10^3/uL (0.00-0.07); LYMPHOCYTES PERCENT AUTO 13.7 % (25.0-50.0); MEAN CORPUSCULAR HEMOGLOBIN 36.1 pg (26.0-32.0); MEAN CORPUSCULAR HGB CONC 32.5 g/dL (32.0-36.0); MEAN CORPUSCULAR VOLUME 111.2 fL (78.0-93.0); MONOCYTES ABSOLUTE AUTO 0.6 x10^3/uL (0.0-0.8); MONOCYTES PERCENT AUTO 16.1 % (2.0-11.0); NEUTROPHILS ABSOLUTE AUTO 2.5 x10^3/uL (1.8-7.7); PLATELET COUNT,PLT 78 x10^3/uL (130-400); RED BLOOD CELL COUNT 2.49 x10^6/uL (4.5-6.0); WHITE BLOOD CELL COUNT,WBC 3.8 x10^3/uL (4.0-10.0)
[2023-08-21 11:56] LABS: INR 1.1 (0.9-1.1); PROTHROMBIN TIME 11.5 SEC (9.5-12.2); PTT,PARTIAL THROMBOPLSTIN TIME 28.5 SEC (23.6-33.6)
[2023-08-21 11:59] LABS: A/G RATIO 0.88; ALANINE AMINOTRANSFERASE,ALT 13 U/L (16-63); ALBUMIN 2.8 g/dL (3.4-5.0); ALKALINE PHOSPHATASE 76 U/L (46-116); ASPARTATE AMNIOTRANSFERASE,AST 21 U/L (15-37); BILIRUBIN TOTAL 1.4 mg/dL (0.2-1.0); BLOOD UREA NITROGEN,BUN 19 mg/dL (7-18); C-REACTIVE PROTEIN 2.64 mg/dL (<=0.30); CALCIUM 8.1 mg/dL (8.5-10.1); CARBON DIOXIDE,CO2 31 mmol/L (21-32); CHLORIDE,CL 107 mmol/L (98-107); CREATININE 0.9 mg/dL (0.70-1.30); GLUCOSE RANDOM 108 mg/dL (70-99); POTASSIUM,K 3.8 mmol/L (3.5-5.1); SODIUM,NA 141 mmol/L (136-145)
[2023-08-21 12:03] LABS: ANION GAP 6.8 mmol/L (5-15); ESTIMATED GFR 84 mL/min (>=60)
[2023-08-21 12:04] LABS: LYMPHOCYTES ABSOLUTE AUTO 0.5 x10^3/uL (1.0-4.8)
[2023-08-21 12:06] LABS: LACTIC ACID 2.1 mmol/L (0.4-2.0)
== END 2023-08-21 12:23 | disposition home or self-care (01) ==
LOC: VM.ED 11:11
DX: S30.0XXA Contusion of lower back and pelvis, initial encounter (principal); I48.91 Unspecified atrial fibrillation; J44.9 Chronic obstructive pulmonary disease, unspecified; E11.9 Type 2 diabetes mellitus without complications; E66.9 Obesity, unspecified; Z79.899 Other long term (current) drug therapy; X58.XXXA Exposure to other specified factors, initial encounter
CPT/HCPCS: 36415; 80053; 83605; 85025; 85610; 85730; 86140; 99283; 99284; A9270-GY

== ENCOUNTER 2023-10-28 12:20 | Inpatient (IN) | payer MEDICARE, BC ==
[2023-10-28] MEDS ORDERED: Polyethylene Glycol 3350 Powder 17 GM Packet PO PRN (13:48)
[2023-10-28] MEDS ORDERED: diphenhydrAMINE 25 MG Cap PO PRN (13:48)
[2023-10-28] MEDS ORDERED: Melatonin 3 MG Tab PO PRN (13:48)
[2023-10-28] MEDS ORDERED: Magnesium Hydroxide 400 MG/5 ML Susp 30 ML Cup PO PRN (13:48)
[2023-10-28] MEDS: Acetaminophen/HYDROcodone 325-10 MG Tab PO PRN (17:00)
[2023-10-28] MEDS: Acetaminophen 500 MG Tab PO SCH ×2 (17:00→20:11)
[2023-10-28] MEDS: Iron Polysaccharides Complex 150 MG Cap PO SCH (20:10)
[2023-10-28] MEDS: Sennosides 8.6 MG Tab PO SCH (20:10)
[2023-10-28] MEDS: valACYclovir 1,000 MG Tab PO SCH (20:10)
[2023-10-28] MEDS ORDERED: Aspirin 81 MG Tab.EC PO SCH (21:00)
[2023-10-29] MEDS: Acetaminophen/HYDROcodone 325-10 MG Tab PO PRN ×4 (00:39→22:03)
[2023-10-29] MEDS: Pantoprazole 40 MG Tab.CR PO SCH (06:48)
[2023-10-29 06:58] LABS: BASOPHILS PERCENT AUTO 0.3 % (0.2-1.2); EOSINOPHILS ABSOLUTE AUTO 0.1 x10^3/uL (0.0-0.5); EOSINOPHILS PERCENT AUTO 0.8 % (0.0-4.0); HEMATOCRIT 24.4 % (40.0-52.0); HEMOGLOBIN 8.1 g/dL (14.0-18.0); IMMATURE GRAN ABSOLUTE AUTO 0.33 x10^3/uL (0.00-0.07); LYMPHOCYTES PERCENT AUTO 12.5 % (25.0-50.0); MEAN CORPUSCULAR HEMOGLOBIN 34.8 pg (26.0-32.0); MEAN CORPUSCULAR HGB CONC 33.2 g/dL (32.0-36.0); MEAN CORPUSCULAR VOLUME 104.7 fL (78.0-93.0); MONOCYTES PERCENT AUTO 12.5 % (2.0-11.0); NEUTROPHILS ABSOLUTE AUTO 5.4 x10^3/uL (1.8-7.7); NEUTROPHILS PERCENT AUTO 69.6 % (50.0-80.0); PLATELET COUNT,PLT 86 x10^3/uL (130-400); RED BLOOD CELL COUNT 2.33 x10^6/uL (4.5-6.0); WHITE BLOOD CELL COUNT,WBC 7.7 x10^3/uL (4.0-10.0)
[2023-10-29] MEDS: Finasteride 5 MG Tab PO SCH (08:27)
[2023-10-29] MEDS: Metoprolol Tartrate 25 MG Tab PO SCH (08:27)
[2023-10-29] MEDS: Tamsulosin 0.4 MG Cap.ER PO SCH (08:27)
[2023-10-29] MEDS: Multivitamin Tab PO SCH (08:27)
[2023-10-29] MEDS: atorvaSTATin 40 MG Tab PO SCH (08:27)
[2023-10-29] MEDS: Acetaminophen 500 MG Tab PO SCH ×4 (08:28→22:02)
[2023-10-29] MEDS: Iron Polysaccharides Complex 150 MG Cap PO SCH ×2 (08:28→22:02)
[2023-10-29] MEDS: Polyethylene Glycol 3350 Powder 17 GM Packet PO SCH (08:34)
[2023-10-29] MEDS ORDERED: Famotidine 20 MG Tab PO SCH (09:00)
[2023-10-29] MEDS: valACYclovir 1,000 MG Tab PO SCH ×2 (10:43→22:01)
[2023-10-29] MEDS: Sennosides 8.6 MG Tab PO SCH (22:04)
[2023-10-30] MEDS: Acetaminophen/HYDROcodone 325-10 MG Tab PO PRN ×4 (04:26→23:02)
[2023-10-30] MEDS: Pantoprazole 40 MG Tab.CR PO SCH (06:40)
[2023-10-30] MEDS: Tamsulosin 0.4 MG Cap.ER PO SCH (08:16)
[2023-10-30] MEDS: Finasteride 5 MG Tab PO SCH (08:16)
[2023-10-30] MEDS: atorvaSTATin 40 MG Tab PO SCH (08:17)
[2023-10-30] MEDS: Multivitamin Tab PO SCH (08:17)
[2023-10-30] MEDS: Acetaminophen 500 MG Tab PO SCH ×4 (08:17→20:37)
[2023-10-30] MEDS: Iron Polysaccharides Complex 150 MG Cap PO SCH ×2 (08:18→20:39)
[2023-10-30] MEDS: valACYclovir 1,000 MG Tab PO SCH ×2 (08:18→20:35)
[2023-10-30] MEDS: Polyethylene Glycol 3350 Powder 17 GM Packet PO SCH (08:18)
[2023-10-30] MEDS: Metoprolol Tartrate 25 MG Tab PO SCH (08:23)
[2023-10-30] MEDS: Ondansetron 4 MG Tab.DIS PO PRN (18:49)
[2023-10-30] MEDS: Sennosides 8.6 MG Tab PO SCH (20:40)
[2023-10-31] MEDS: Acetaminophen/HYDROcodone 325-10 MG Tab PO PRN ×4 (04:02→20:09)
[2023-10-31] MEDS: Pantoprazole 40 MG Tab.CR PO SCH (06:47)
[2023-10-31] MEDS: Acetaminophen 500 MG Tab PO SCH ×4 (08:29→20:10)
[2023-10-31] MEDS: Metoprolol Tartrate 25 MG Tab PO SCH (08:30)
[2023-10-31] MEDS: Finasteride 5 MG Tab PO SCH (08:30)
[2023-10-31] MEDS: Iron Polysaccharides Complex 150 MG Cap PO SCH ×2 (08:31→20:09)
[2023-10-31] MEDS: valACYclovir 1,000 MG Tab PO SCH ×2 (08:31→20:09)
[2023-10-31] MEDS: Multivitamin Tab PO SCH (08:31)
[2023-10-31] MEDS: Tamsulosin 0.4 MG Cap.ER PO SCH (08:31)
[2023-10-31] MEDS: atorvaSTATin 40 MG Tab PO SCH (08:31)
[2023-10-31] MEDS: Polyethylene Glycol 3350 Powder 17 GM Packet PO SCH (08:34)
[2023-10-31] MEDS: Ondansetron 4 MG Tab.DIS PO PRN (08:36)
[2023-10-31] MEDS: Sennosides 8.6 MG Tab PO SCH (20:09)
[2023-11-01] MEDS: Acetaminophen/HYDROcodone 325-10 MG Tab PO PRN ×5 (01:15→21:12)
[2023-11-01] MEDS: Pantoprazole 40 MG Tab.CR PO SCH (06:48)
[2023-11-01 07:07] LABS: HEMATOCRIT 27.1 % (40.0-52.0); HEMOGLOBIN 9.1 g/dL (14.0-18.0); MEAN CORPUSCULAR HGB CONC 33.6 g/dL (32.0-36.0); MEAN CORPUSCULAR VOLUME 104.2 fL (78.0-93.0); PLATELET COUNT,PLT 95 x10^3/uL (130-400); WHITE BLOOD CELL COUNT,WBC 8.7 x10^3/uL (4.0-10.0)
[2023-11-01 07:09] LABS: CALCIUM 8.2 mg/dL (8.5-10.1); CREATININE 0.8 mg/dL (0.70-1.30); EST CRCL DRUG DOSING (CG) 76.29 mL/min; POTASSIUM,K 4.5 mmol/L (3.5-5.1)
[2023-11-01 07:13] LABS: ANION GAP 11.5 mmol/L (5-15)
[2023-11-01 07:18] LABS: BAND PERCENT MAN 3 % (0-6); EOSINOPHILS ABSOLUTE MAN 0.1 x10^3/uL (0.0-0.5); EOSINOPHILS PERCENT MAN 1 % (0-4); LYMPHOCYTES ABSOLUTE MAN 1.9 x10^3/uL (1.0-4.8); LYMPHOCYTES PERCENT MAN 22 % (25-50); MONOCYTES ABSOLUTE MAN 1.2 x10^3/uL (0.0-0.8); MONOCYTES PERCENT MAN 14 % (2-11); NEUTROPHILS ABSOLUTE MAN 5.5 x10^3/uL (1.8-7.7); PLATELET COUNT ESTIMATE DECREASED; SEG NEUTROPHILS PERCENT MAN 60 % (50-80)
[2023-11-01 07:19] LABS: ANISOCYTOSIS 2+ MODERATE; HYPOCHROMASIA 1+ SLIGHT
[2023-11-01] MEDS: Acetaminophen 500 MG Tab PO SCH ×4 (08:03→20:59)
[2023-11-01] MEDS: Tamsulosin 0.4 MG Cap.ER PO SCH (08:03)
[2023-11-01] MEDS: Multivitamin Tab PO SCH (08:05)
[2023-11-01] MEDS: Aspirin 81 MG Tab.EC PO SCH ×2 (08:05→20:58)
[2023-11-01] MEDS: Metoprolol Tartrate 25 MG Tab PO SCH (08:07)
[2023-11-01] MEDS: Iron Polysaccharides Complex 150 MG Cap PO SCH ×2 (08:08→20:57)
[2023-11-01] MEDS: atorvaSTATin 40 MG Tab PO SCH (08:09)
[2023-11-01] MEDS: Polyethylene Glycol 3350 Powder 17 GM Packet PO SCH (08:09)
[2023-11-01] MEDS: Finasteride 5 MG Tab PO SCH (08:09)
[2023-11-01] MEDS: valACYclovir 1,000 MG Tab PO SCH ×2 (11:05→20:55)
[2023-11-01] MEDS: Sennosides 8.6 MG Tab PO SCH (20:57)
[2023-11-02] MEDS: Acetaminophen/HYDROcodone 325-10 MG Tab PO PRN ×4 (03:01→21:51)
[2023-11-02] MEDS: Pantoprazole 40 MG Tab.CR PO SCH (06:30)
[2023-11-02] MEDS ORDERED: Bisacodyl 10 MG Supp RECTAL ONE (08:28)
[2023-11-02] MEDS: Polyethylene Glycol 3350 Powder 17 GM Packet PO SCH (08:41)
[2023-11-02] MEDS: atorvaSTATin 40 MG Tab PO SCH (08:41)
[2023-11-02] MEDS: Iron Polysaccharides Complex 150 MG Cap PO SCH (08:42)
[2023-11-02] MEDS: Multivitamin Tab PO SCH (08:42)
[2023-11-02] MEDS: Aspirin 81 MG Tab.EC PO SCH ×2 (08:42→21:51)
[2023-11-02] MEDS: valACYclovir 1,000 MG Tab PO SCH ×2 (08:43→21:52)
[2023-11-02] MEDS: Acetaminophen 500 MG Tab PO SCH ×4 (08:44→21:52)
[2023-11-02] MEDS: Tamsulosin 0.4 MG Cap.ER PO SCH (08:46)
[2023-11-02] MEDS: Metoprolol Tartrate 25 MG Tab PO SCH (08:46)
[2023-11-02] MEDS: Finasteride 5 MG Tab PO SCH (08:52)
[2023-11-02] MEDS: Ondansetron 4 MG Tab.DIS PO PRN (11:43)
[2023-11-02] MEDS: Sennosides 8.6 MG Tab PO SCH ×2 (12:38→21:51)
[2023-11-02] MEDS: Amoxicillin/Clavulanate K 875-125 MG Tab PO SCH ×2 (12:38→21:52)
[2023-11-03] MEDS: Acetaminophen/HYDROcodone 325-10 MG Tab PO PRN ×3 (02:34→10:56)
[2023-11-03] MEDS: Pantoprazole 40 MG Tab.CR PO SCH (06:31)
[2023-11-03 06:45] LABS: HEMATOCRIT 28.5 % (40.0-52.0); HEMOGLOBIN 9.3 g/dL (14.0-18.0); MEAN CORPUSCULAR HEMOGLOBIN 34.1 pg (26.0-32.0); MEAN CORPUSCULAR HGB CONC 32.6 g/dL (32.0-36.0); MEAN CORPUSCULAR VOLUME 104.4 fL (78.0-93.0); PLATELET COUNT,PLT 75 x10^3/uL (130-400); RED BLOOD CELL COUNT 2.73 x10^6/uL (4.5-6.0); WHITE BLOOD CELL COUNT,WBC 8.5 x10^3/uL (4.0-10.0)
[2023-11-03 07:00] LABS: A/G RATIO 0.88; ALANINE AMINOTRANSFERASE,ALT 24 U/L (16-63); ALBUMIN 2.2 g/dL (3.4-5.0); ALKALINE PHOSPHATASE 133 U/L (46-116); ASPARTATE AMNIOTRANSFERASE,AST 42 U/L (15-37); BILIRUBIN TOTAL 1.9 mg/dL (0.2-1.0); BLOOD UREA NITROGEN,BUN 17 mg/dL (7-18); CALCIUM 7.8 mg/dL (8.5-10.1); CARBON DIOXIDE,CO2 30 mmol/L (21-32); CHLORIDE,CL 99 mmol/L (98-107); CREATININE 0.7 mg/dL (0.70-1.30); GLUCOSE RANDOM 95 mg/dL (70-99); POTASSIUM,K 4.4 mmol/L (3.5-5.1); PROTEIN TOTAL,TP 4.7 g/dL (6.4-8.2); SODIUM,NA 133 mmol/L (136-145)
[2023-11-03 07:01] LABS: ANION GAP 8.4 mmol/L (5-15); ESTIMATED GFR 90 mL/min (>=60)
[2023-11-03 07:06] LABS: ANISOCYTOSIS 3+ MARKED; BAND PERCENT MAN 3 % (0-6); EOSINOPHILS ABSOLUTE MAN 0.1 x10^3/uL (0.0-0.5); EOSINOPHILS PERCENT MAN 1 % (0-4); LYMPHOCYTES % ATYPICAL MANUAL 4 % (0); LYMPHOCYTES ABSOLUTE MAN 1.7 x10^3/uL (1.0-4.8); LYMPHOCYTES PERCENT MAN 16 % (25-50); MONOCYTES ABSOLUTE MAN 1.4 x10^3/uL (0.0-0.8); MONOCYTES PERCENT MAN 16 % (2-11); NEUTROPHILS ABSOLUTE MAN 5.4 x10^3/uL (1.8-7.7); OVALOCYTES 1+ SLIGHT; PLATELET COUNT ESTIMATE DECREASED; SEG NEUTROPHILS PERCENT MAN 60 % (50-80)
[2023-11-03] MEDS: Amoxicillin/Clavulanate K 875-125 MG Tab PO SCH ×2 (09:34→21:51)
[2023-11-03] MEDS: Tamsulosin 0.4 MG Cap.ER PO SCH (09:34)
[2023-11-03] MEDS: atorvaSTATin 40 MG Tab PO SCH (09:34)
[2023-11-03] MEDS: Sennosides 8.6 MG Tab PO SCH ×2 (09:35→21:53)
[2023-11-03] MEDS: Ondansetron 4 MG Tab.DIS PO PRN (09:35)
[2023-11-03] MEDS: Finasteride 5 MG Tab PO SCH (09:35)
[2023-11-03] MEDS: Furosemide 20 MG Tab PO SCH (09:35)
[2023-11-03] MEDS: Acetaminophen 500 MG Tab PO SCH ×4 (09:35→21:52)
[2023-11-03] MEDS: Multivitamin Tab PO SCH (09:35)
[2023-11-03] MEDS: Aspirin 81 MG Tab.EC PO SCH ×2 (09:35→21:51)
[2023-11-03] MEDS: Metoprolol Tartrate 25 MG Tab PO SCH (09:36)
[2023-11-03] MEDS: Polyethylene Glycol 3350 Powder 17 GM Packet PO SCH (09:36)
[2023-11-03] MEDS: valACYclovir 1,000 MG Tab PO SCH ×2 (09:41→21:54)
[2023-11-04] MEDS: Acetaminophen/HYDROcodone 325-10 MG Tab PO PRN ×5 (00:01→21:55)
[2023-11-04] MEDS: Pantoprazole 40 MG Tab.CR PO SCH (06:07)
[2023-11-04] MEDS: Multivitamin Tab PO SCH (08:23)
[2023-11-04] MEDS: Metoprolol Tartrate 25 MG Tab PO SCH (08:23)
[2023-11-04] MEDS: Polyethylene Glycol 3350 Powder 17 GM Packet PO SCH (08:23)
[2023-11-04] MEDS: Ondansetron 4 MG Tab.DIS PO PRN (08:23)
[2023-11-04] MEDS: Amoxicillin/Clavulanate K 875-125 MG Tab PO SCH ×2 (08:23→20:32)
[2023-11-04] MEDS: Finasteride 5 MG Tab PO SCH (08:23)
[2023-11-04] MEDS: Aspirin 81 MG Tab.EC PO SCH ×2 (08:24→20:31)
[2023-11-04] MEDS: Furosemide 20 MG Tab PO SCH (08:24)
[2023-11-04] MEDS: atorvaSTATin 40 MG Tab PO SCH (08:24)
[2023-11-04] MEDS: Acetaminophen 500 MG Tab PO SCH ×4 (08:24→20:29)
[2023-11-04] MEDS: Sennosides 8.6 MG Tab PO SCH ×2 (08:24→20:33)
[2023-11-04] MEDS: valACYclovir 1,000 MG Tab PO SCH ×2 (08:25→20:33)
[2023-11-04] MEDS: Tamsulosin 0.4 MG Cap.ER PO SCH (08:25)
[2023-11-04] MEDS: Iron Polysaccharides Complex 150 MG Cap PO SCH (08:31)
[2023-11-05] MEDS: Acetaminophen/HYDROcodone 325-10 MG Tab PO PRN ×2 (01:59→06:16)
[2023-11-05] MEDS: Pantoprazole 40 MG Tab.CR PO SCH (06:16)
[2023-11-05 07:05] LABS: HEMATOCRIT 31.4 % (40.0-52.0); HEMOGLOBIN 10.2 g/dL (14.0-18.0); MEAN CORPUSCULAR HEMOGLOBIN 34.1 pg (26.0-32.0); MEAN CORPUSCULAR HGB CONC 32.5 g/dL (32.0-36.0); PLATELET COUNT,PLT 65 x10^3/uL (130-400); RED BLOOD CELL COUNT 2.99 x10^6/uL (4.5-6.0); WHITE BLOOD CELL COUNT,WBC 7.5 x10^3/uL (4.0-10.0)
[2023-11-05 07:29] LABS: A/G RATIO 0.92; ALBUMIN 2.3 g/dL (3.4-5.0); CREATININE 0.8 mg/dL (0.70-1.30); EST CRCL DRUG DOSING (CG) 75.92 mL/min; POTASSIUM,K 4.2 mmol/L (3.5-5.1); PROTEIN TOTAL,TP 4.8 g/dL (6.4-8.2)
[2023-11-05 07:30] LABS: ANION GAP 11.2 mmol/L (5-15)
[2023-11-05 07:33] LABS: ANISOCYTOSIS 2+ MODERATE; BAND PERCENT MAN 2 % (0-6); BURR CELLS 1+ SLIGHT; EOSINOPHILS ABSOLUTE MAN 0.1 x10^3/uL (0.0-0.5); EOSINOPHILS PERCENT MAN 1 % (0-4); HYPOCHROMASIA 1+ SLIGHT; LYMPHOCYTES ABSOLUTE MAN 1.4 x10^3/uL (1.0-4.8); LYMPHOCYTES PERCENT MAN 18 % (25-50); MONOCYTES ABSOLUTE MAN 0.2 x10^3/uL (0.0-0.8); MONOCYTES PERCENT MAN 3 % (2-11); NEUTROPHILS ABSOLUTE MAN 5.9 x10^3/uL (1.8-7.7); PLATELET COUNT ESTIMATE DECREASED; SEG NEUTROPHILS PERCENT MAN 76 % (50-80)
[2023-11-05] MEDS: Ondansetron 4 MG Tab.DIS PO PRN (09:09)
[2023-11-05] MEDS: valACYclovir 1,000 MG Tab PO SCH ×2 (10:35→20:28)
[2023-11-05] MEDS: Metoprolol Tartrate 25 MG Tab PO SCH (10:36)
[2023-11-05] MEDS: Amoxicillin/Clavulanate K 875-125 MG Tab PO SCH ×2 (10:36→20:28)
[2023-11-05] MEDS: Finasteride 5 MG Tab PO SCH (10:36)
[2023-11-05] MEDS: atorvaSTATin 40 MG Tab PO SCH (10:37)
[2023-11-05] MEDS: Polyethylene Glycol 3350 Powder 17 GM Packet PO SCH (10:37)
[2023-11-05] MEDS: Furosemide 20 MG Tab PO SCH (10:37)
[2023-11-05] MEDS: Multivitamin Tab PO SCH (10:37)
[2023-11-05] MEDS: Tamsulosin 0.4 MG Cap.ER PO SCH ×2 (10:37→20:30)
[2023-11-05] MEDS: Aspirin 81 MG Tab.EC PO SCH (10:37)
[2023-11-05] MEDS: Sennosides 8.6 MG Tab PO SCH ×2 (10:37→20:30)
[2023-11-05] MEDS: oxyCODONE 5 MG Tab PO PRN ×3 (10:42→22:00)
[2023-11-05] MEDS: Acetaminophen 500 MG Tab PO SCH ×2 (10:45→20:30)
[2023-11-06] MEDS: oxyCODONE 5 MG Tab PO PRN ×5 (02:01→22:30)
[2023-11-06] MEDS: Pantoprazole 40 MG Tab.CR PO SCH (06:05)
[2023-11-06 08:03] LABS: HEMATOCRIT 30.6 % (40.0-52.0); HEMOGLOBIN 9.9 g/dL (14.0-18.0); MEAN CORPUSCULAR HEMOGLOBIN 34.1 pg (26.0-32.0); MEAN CORPUSCULAR HGB CONC 32.4 g/dL (32.0-36.0); MEAN CORPUSCULAR VOLUME 105.5 fL (78.0-93.0); PLATELET COUNT,PLT 57 x10^3/uL (130-400)
[2023-11-06 08:28] LABS: A/G RATIO 0.88; ALBUMIN 2.2 g/dL (3.4-5.0); BILIRUBIN TOTAL 1.9 mg/dL (0.2-1.0); CALCIUM 7.8 mg/dL (8.5-10.1); CREATININE 0.8 mg/dL (0.70-1.30); EST CRCL DRUG DOSING (CG) 75.92 mL/min; POTASSIUM,K 4.4 mmol/L (3.5-5.1); PROTEIN TOTAL,TP 4.7 g/dL (6.4-8.2)
[2023-11-06 08:30] LABS: ANION GAP 10.4 mmol/L (5-15)
[2023-11-06 08:54] LABS: ANISOCYTOSIS 3+ MARKED; BAND PERCENT MAN 8 % (0-6); LYMPHOCYTES ABSOLUTE MAN 1.4 x10^3/uL (1.0-4.8); LYMPHOCYTES PERCENT MAN 20 % (25-50); MONOCYTES ABSOLUTE MAN 0.6 x10^3/uL (0.0-0.8); MONOCYTES PERCENT MAN 9 % (2-11); OVALOCYTES 1+ SLIGHT; PLATELET COUNT ESTIMATE MARKED DEC; POLYCHROMASIA 1+ SLIGHT; SEG NEUTROPHILS PERCENT MAN 63 % (50-80); SMUDGE CELLS MANY; TOXIC GRANULATION 1+ SLIGHT
[2023-11-06] MEDS: valACYclovir 1,000 MG Tab PO SCH ×2 (09:31→20:01)
[2023-11-06] MEDS: Sennosides 8.6 MG Tab PO SCH ×2 (09:31→20:02)
[2023-11-06] MEDS: Finasteride 5 MG Tab PO SCH (09:31)
[2023-11-06] MEDS: Amoxicillin/Clavulanate K 875-125 MG Tab PO SCH ×2 (09:31→20:01)
[2023-11-06] MEDS: Metoprolol Tartrate 25 MG Tab PO SCH (09:31)
[2023-11-06] MEDS: atorvaSTATin 40 MG Tab PO SCH (09:31)
[2023-11-06] MEDS: Furosemide 40 MG Tab PO SCH (09:31)
[2023-11-06] MEDS: Acetaminophen 500 MG Tab PO SCH ×2 (09:32→20:03)
[2023-11-06] MEDS: Multivitamin Tab PO SCH (09:32)
[2023-11-06] MEDS: Tamsulosin 0.4 MG Cap.ER PO SCH ×2 (09:32→20:01)
[2023-11-06] MEDS: Polyethylene Glycol 3350 Powder 17 GM Packet PO SCH (09:33)
[2023-11-06] MEDS: Iron Polysaccharides Complex 150 MG Cap PO SCH (09:46)
[2023-11-06] MEDS: Ondansetron 4 MG Tab.DIS PO PRN (11:34)
[2023-11-07] MEDS: oxyCODONE 5 MG Tab PO PRN ×5 (02:31→21:51)
[2023-11-07] MEDS: Pantoprazole 40 MG Tab.CR PO SCH (06:30)
[2023-11-07] MEDS: Ondansetron 4 MG Tab.DIS PO PRN ×2 (08:55→18:34)
[2023-11-07] MEDS: Furosemide 40 MG Tab PO SCH (08:56)
[2023-11-07] MEDS: Finasteride 5 MG Tab PO SCH (08:56)
[2023-11-07] MEDS: Amoxicillin/Clavulanate K 875-125 MG Tab PO SCH ×2 (08:56→20:10)
[2023-11-07] MEDS: Sennosides 8.6 MG Tab PO SCH ×2 (08:56→20:09)
[2023-11-07] MEDS: Multivitamin Tab PO SCH (08:56)
[2023-11-07] MEDS: Acetaminophen 500 MG Tab PO SCH ×2 (08:56→20:10)
[2023-11-07] MEDS: valACYclovir 1,000 MG Tab PO SCH ×2 (08:56→20:09)
[2023-11-07] MEDS: Metoprolol Tartrate 25 MG Tab PO SCH (08:56)
[2023-11-07] MEDS: atorvaSTATin 40 MG Tab PO SCH (08:57)
[2023-11-07] MEDS: Tamsulosin 0.4 MG Cap.ER PO SCH ×2 (08:57→20:09)
[2023-11-07] MEDS: Polyethylene Glycol 3350 Powder 17 GM Packet PO SCH (08:58)
[2023-11-08] MEDS: oxyCODONE 5 MG Tab PO PRN ×4 (01:51→19:29)
[2023-11-08] MEDS: Pantoprazole 40 MG Tab.CR PO SCH (06:04)
[2023-11-08 06:48] LABS: HEMATOCRIT 32.4 % (40.0-52.0); HEMOGLOBIN 10.7 g/dL (14.0-18.0); MEAN CORPUSCULAR HEMOGLOBIN 34.7 pg (26.0-32.0); MEAN CORPUSCULAR VOLUME 105.2 fL (78.0-93.0); PLATELET COUNT,PLT 64 x10^3/uL (130-400); RED BLOOD CELL COUNT 3.08 x10^6/uL (4.5-6.0); WHITE BLOOD CELL COUNT,WBC 7.5 x10^3/uL (4.0-10.0)
[2023-11-08 06:57] LABS: BAND PERCENT MAN 7 % (0-6); EOSINOPHILS ABSOLUTE MAN 0.1 x10^3/uL (0.0-0.5); EOSINOPHILS PERCENT MAN 1 % (0-4); LYMPHOCYTES ABSOLUTE MAN 2.3 x10^3/uL (1.0-4.8); LYMPHOCYTES PERCENT MAN 30 % (25-50); MONOCYTES ABSOLUTE MAN 0.3 x10^3/uL (0.0-0.8); MONOCYTES PERCENT MAN 4 % (2-11); NEUTROPHILS ABSOLUTE MAN 4.9 x10^3/uL (1.8-7.7); SEG NEUTROPHILS PERCENT MAN 58 % (50-80)
[2023-11-08 06:58] LABS: ANISOCYTOSIS 3+ MARKED; HYPOCHROMASIA 1+ SLIGHT; OVALOCYTES 1+ SLIGHT; PLATELET COUNT ESTIMATE MARKED DEC; TARGET CELLS 1+ SLIGHT
[2023-11-08 07:11] LABS: A/G RATIO 0.85; ALBUMIN 2.3 g/dL (3.4-5.0); ANION GAP 10.3 mmol/L (5-15); BILIRUBIN TOTAL 1.9 mg/dL (0.2-1.0); CALCIUM 7.9 mg/dL (8.5-10.1); CREATININE 0.8 mg/dL (0.70-1.30); EST CRCL DRUG DOSING (CG) 75.92 mL/min; POTASSIUM,K 4.3 mmol/L (3.5-5.1)
[2023-11-08] MEDS: Sennosides 8.6 MG Tab PO SCH ×2 (08:35→20:12)
[2023-11-08] MEDS: atorvaSTATin 40 MG Tab PO SCH (08:35)
[2023-11-08] MEDS: Polyethylene Glycol 3350 Powder 17 GM Packet PO SCH (08:35)
[2023-11-08] MEDS: valACYclovir 1,000 MG Tab PO SCH ×2 (08:35→20:12)
[2023-11-08] MEDS: Finasteride 5 MG Tab PO SCH (08:36)
[2023-11-08] MEDS: Amoxicillin/Clavulanate K 875-125 MG Tab PO SCH ×2 (08:36→20:11)
[2023-11-08] MEDS: Furosemide 40 MG Tab PO SCH (08:36)
[2023-11-08] MEDS: Acetaminophen 500 MG Tab PO SCH (08:36)
[2023-11-08] MEDS: Multivitamin Tab PO SCH (08:36)
[2023-11-08] MEDS: Tamsulosin 0.4 MG Cap.ER PO SCH ×2 (08:36→20:11)
[2023-11-08] MEDS: Iron Polysaccharides Complex 150 MG Cap PO SCH (08:46)
[2023-11-08] MEDS: Metoprolol Tartrate 25 MG Tab PO SCH (08:46)
[2023-11-08] MEDS: Ondansetron 4 MG Tab.DIS PO PRN ×2 (08:59→12:20)
[2023-11-08] MEDS ORDERED: Acetaminophen 500 MG Tab PO PRN (13:09)
[2023-11-08] MEDS ORDERED: Bisacodyl 10 MG Supp RECTAL ONE (14:00)
[2023-11-08] MEDS: Metoclopramide 5 MG Tab PO SCH (16:44)
[2023-11-08] MEDS: Aspirin 81 MG Tab.EC PO SCH (20:12)
[2023-11-09] MEDS: Metoclopramide 5 MG Tab PO SCH ×3 (06:08→17:01)
[2023-11-09] MEDS: oxyCODONE 5 MG Tab PO PRN ×3 (06:08→12:19)
[2023-11-09] MEDS: Pantoprazole 40 MG Tab.CR PO SCH (06:08)
[2023-11-09 07:06] LABS: BASOPHILS PERCENT AUTO 0.4 % (0.2-1.2); EOSINOPHILS ABSOLUTE AUTO 0.1 x10^3/uL (0.0-0.5); EOSINOPHILS PERCENT AUTO 1.2 % (0.0-4.0); HEMATOCRIT 32.3 % (40.0-52.0); HEMOGLOBIN 10.7 g/dL (14.0-18.0); IMMATURE GRAN ABSOLUTE AUTO 0.15 x10^3/uL (0.00-0.07); LYMPHOCYTES ABSOLUTE AUTO 2.3 x10^3/uL (1.0-4.8); LYMPHOCYTES PERCENT AUTO 28.4 % (25.0-50.0); MEAN CORPUSCULAR HEMOGLOBIN 34.9 pg (26.0-32.0); MEAN CORPUSCULAR HGB CONC 33.1 g/dL (32.0-36.0); MEAN CORPUSCULAR VOLUME 105.2 fL (78.0-93.0); NEUTROPHILS ABSOLUTE AUTO 4.5 x10^3/uL (1.8-7.7); NEUTROPHILS PERCENT AUTO 56.1 % (50.0-80.0); PLATELET COUNT,PLT 69 x10^3/uL (130-400); RED BLOOD CELL COUNT 3.07 x10^6/uL (4.5-6.0); WHITE BLOOD CELL COUNT,WBC 8.1 x10^3/uL (4.0-10.0)
[2023-11-09 07:33] LABS: A/G RATIO 0.85; ALBUMIN 2.3 g/dL (3.4-5.0); ANION GAP 10.4 mmol/L (5-15); CREATININE 0.8 mg/dL (0.70-1.30); EST CRCL DRUG DOSING (CG) 75.92 mL/min; POTASSIUM,K 4.4 mmol/L (3.5-5.1)
[2023-11-09 07:39] LABS: MAGNESIUM 1.9 mg/dL (1.8-2.4)
[2023-11-09] MEDS: Ondansetron 4 MG Tab.DIS PO PRN ×2 (07:42→12:23)
[2023-11-09] MEDS: Metoprolol Tartrate 25 MG Tab PO SCH (08:18)
[2023-11-09] MEDS: atorvaSTATin 40 MG Tab PO SCH (08:18)
[2023-11-09] MEDS: Finasteride 5 MG Tab PO SCH (08:19)
[2023-11-09] MEDS: Sennosides 8.6 MG Tab PO SCH ×2 (08:19→20:42)
[2023-11-09] MEDS: Furosemide 20 MG Tab PO SCH (08:19)
[2023-11-09] MEDS: Aspirin 81 MG Tab.EC PO SCH ×2 (08:19→20:42)
[2023-11-09] MEDS: Tamsulosin 0.4 MG Cap.ER PO SCH ×2 (08:19→20:42)
[2023-11-09] MEDS: valACYclovir 1,000 MG Tab PO SCH ×2 (08:20→20:42)
[2023-11-09] MEDS: Polyethylene Glycol 3350 Powder 17 GM Packet PO SCH (08:20)
[2023-11-10] MEDS: oxyCODONE 5 MG Tab PO PRN ×5 (00:49→21:48)
[2023-11-10] MEDS: Metoclopramide 5 MG Tab PO SCH ×3 (06:12→17:26)
[2023-11-10] MEDS: Pantoprazole 40 MG Tab.CR PO SCH (06:12)
[2023-11-10] MEDS: Polyethylene Glycol 3350 Powder 17 GM Packet PO SCH (08:35)
[2023-11-10] MEDS: Ondansetron 4 MG Tab.DIS PO PRN (08:35)
[2023-11-10 09:41] LABS: BILIRUBIN,URINE SMALL (NEGATIVE); COLOR,URINE AMBER (YELLOW); GLUCOSE,URINE NEGATIVE (NEGATIVE); KETONES,URINE NEGATIVE (NEGATIVE); LEUKOCYTE ESTERASE,URINE SMALL (NEGATIVE); NITRITE,URINE POSITIVE (NEGATIVE); OCCULT BLOOD,URINE LARGE (NEGATIVE); PROTEIN,URINE 100 mg/dL (NEGATIVE)
[2023-11-10 09:45] LABS: APPEARANCE,URINE TURBID (CLEAR)
[2023-11-10] MEDS: Furosemide 20 MG Tab PO SCH (09:51)
[2023-11-10] MEDS: valACYclovir 1,000 MG Tab PO SCH ×2 (09:51→20:17)
[2023-11-10] MEDS: atorvaSTATin 40 MG Tab PO SCH (09:51)
[2023-11-10] MEDS: Sennosides 8.6 MG Tab PO SCH ×2 (09:51→20:18)
[2023-11-10] MEDS: Tamsulosin 0.4 MG Cap.ER PO SCH ×2 (09:51→20:18)
[2023-11-10] MEDS: Finasteride 5 MG Tab PO SCH (09:51)
[2023-11-10] MEDS: Metoprolol Tartrate 25 MG Tab PO SCH (09:52)
[2023-11-10 09:56] LABS: BACTERIA,URINE OCCASIONAL /HPF (NOT SEEN); CALCIUM OXALATE CRYSTALS,URINE OCCASIONAL /HPF (NOT SEEN); MUCUS,URINE OCCASIONAL /LPF (NOT SEEN); RBC,URINE PACKED /HPF (NOT SEEN)
[2023-11-10] MEDS: Ciprofloxacin 250 MG Tab PO SCH ×2 (17:25→20:18)
[2023-11-10] MEDS ORDERED: Gabapentin 100 MG Cap PO SCH (21:00)
[2023-11-11] MEDS: oxyCODONE 5 MG Tab PO PRN ×4 (02:11→20:25)
[2023-11-11] MEDS: Pantoprazole 40 MG Tab.CR PO SCH (06:01)
[2023-11-11] MEDS: Metoclopramide 5 MG Tab PO SCH ×3 (06:01→17:09)
[2023-11-11 07:18] LABS: HEMATOCRIT 31.5 % (40.0-52.0); HEMOGLOBIN 10.4 g/dL (14.0-18.0); MEAN CORPUSCULAR HEMOGLOBIN 34.3 pg (26.0-32.0); PLATELET COUNT,PLT 82 x10^3/uL (130-400); RED BLOOD CELL COUNT 3.03 x10^6/uL (4.5-6.0); WHITE BLOOD CELL COUNT,WBC 7.4 x10^3/uL (4.0-10.0)
[2023-11-11 07:30] LABS: ANISOCYTOSIS 2+ MODERATE; BAND PERCENT MAN 3 % (0-6); LYMPHOCYTES % ATYPICAL MANUAL 3 % (0); LYMPHOCYTES ABSOLUTE MAN 1.8 x10^3/uL (1.0-4.8); LYMPHOCYTES PERCENT MAN 21 % (25-50); MONOCYTES ABSOLUTE MAN 0.5 x10^3/uL (0.0-0.8); MONOCYTES PERCENT MAN 7 % (2-11); NEUTROPHILS ABSOLUTE MAN 5.1 x10^3/uL (1.8-7.7); SEG NEUTROPHILS PERCENT MAN 66 % (50-80)
[2023-11-11 07:31] LABS: HYPOCHROMASIA 1+ SLIGHT; OVALOCYTES 1+ SLIGHT; PLATELET COUNT ESTIMATE DECREASED
[2023-11-11 07:39] LABS: A/G RATIO 0.81; ALBUMIN 2.2 g/dL (3.4-5.0); CALCIUM 7.9 mg/dL (8.5-10.1); CREATININE 0.7 mg/dL (0.70-1.30); EST CRCL DRUG DOSING (CG) 86.77 mL/min; POTASSIUM,K 4.2 mmol/L (3.5-5.1); PROTEIN TOTAL,TP 4.9 g/dL (6.4-8.2)
[2023-11-11 07:40] LABS: ANION GAP 8.2 mmol/L (5-15)
[2023-11-11] MEDS: valACYclovir 1,000 MG Tab PO SCH ×2 (08:21→20:17)
[2023-11-11] MEDS: atorvaSTATin 40 MG Tab PO SCH (08:21)
[2023-11-11] MEDS: Metoprolol Tartrate 25 MG Tab PO SCH (08:22)
[2023-11-11] MEDS: Tamsulosin 0.4 MG Cap.ER PO SCH ×2 (08:22→20:17)
[2023-11-11] MEDS: Furosemide 20 MG Tab PO SCH (08:22)
[2023-11-11] MEDS: Ciprofloxacin 250 MG Tab PO SCH ×2 (08:24→20:17)
[2023-11-11] MEDS: Finasteride 5 MG Tab PO SCH (08:25)
[2023-11-11] MEDS: Polyethylene Glycol 3350 Powder 17 GM Packet PO SCH (08:26)
[2023-11-11] MEDS: Sennosides 8.6 MG Tab PO SCH ×2 (08:26→20:16)
[2023-11-11] MEDS: Sodium Chloride/Potassium Chloride Tab PO SCH ×2 (08:36→20:16)
[2023-11-11] MEDS: Ondansetron 4 MG Tab.DIS PO PRN (13:56)
[2023-11-11] MEDS: Gabapentin 100 MG Cap PO SCH (20:15)
[2023-11-12] MEDS: Ondansetron 4 MG Tab.DIS PO PRN ×3 (00:35→16:54)
[2023-11-12] MEDS: oxyCODONE 5 MG Tab PO PRN ×2 (04:40→23:36)
[2023-11-12] MEDS: Metoclopramide 5 MG Tab PO SCH ×3 (06:03→16:54)
[2023-11-12] MEDS: Pantoprazole 40 MG Tab.CR PO SCH (06:03)
[2023-11-12 06:39] LABS: BASOPHILS PERCENT AUTO 0.3 % (0.2-1.2); EOSINOPHILS ABSOLUTE AUTO 0.1 x10^3/uL (0.0-0.5); HEMATOCRIT 30.7 % (40.0-52.0); HEMOGLOBIN 10.4 g/dL (14.0-18.0); IMMATURE GRAN ABSOLUTE AUTO 0.28 x10^3/uL (0.00-0.07); LYMPHOCYTES ABSOLUTE AUTO 2.2 x10^3/uL (1.0-4.8); LYMPHOCYTES PERCENT AUTO 23.7 % (25.0-50.0); MEAN CORPUSCULAR HEMOGLOBIN 34.6 pg (26.0-32.0); MEAN CORPUSCULAR HGB CONC 33.9 g/dL (32.0-36.0); MONOCYTES ABSOLUTE AUTO 1.4 x10^3/uL (0.0-0.8); MONOCYTES PERCENT AUTO 14.9 % (2.0-11.0); NEUTROPHILS ABSOLUTE AUTO 5.3 x10^3/uL (1.8-7.7); NEUTROPHILS PERCENT AUTO 57.1 % (50.0-80.0); RED BLOOD CELL COUNT 3.01 x10^6/uL (4.5-6.0); WHITE BLOOD CELL COUNT,WBC 9.3 x10^3/uL (4.0-10.0)
[2023-11-12 06:51] LABS: PLATELET COUNT,PLT 84 x10^3/uL (130-400)
[2023-11-12 06:55] LABS: A/G RATIO 0.85; ALBUMIN 2.2 g/dL (3.4-5.0); CALCIUM 7.8 mg/dL (8.5-10.1); CREATININE 0.7 mg/dL (0.70-1.30); EST CRCL DRUG DOSING (CG) 86.77 mL/min; POTASSIUM,K 4.5 mmol/L (3.5-5.1); PROTEIN TOTAL,TP 4.8 g/dL (6.4-8.2)
[2023-11-12 06:56] LABS: ANION GAP 10.5 mmol/L (5-15)
[2023-11-12] MEDS: Tamsulosin 0.4 MG Cap.ER PO SCH ×2 (08:19→23:26)
[2023-11-12] MEDS: atorvaSTATin 40 MG Tab PO SCH (08:19)
[2023-11-12] MEDS: Ciprofloxacin 250 MG Tab PO SCH ×2 (08:20→23:26)
[2023-11-12] MEDS: Metoprolol Tartrate 25 MG Tab PO SCH (08:20)
[2023-11-12] MEDS: Finasteride 5 MG Tab PO SCH (08:20)
[2023-11-12] MEDS: valACYclovir 1,000 MG Tab PO SCH ×2 (08:23→23:22)
[2023-11-12] MEDS: Sennosides 8.6 MG Tab PO SCH ×3 (08:23→23:27)
[2023-11-12] MEDS: Polyethylene Glycol 3350 Powder 17 GM Packet PO SCH (08:24)
[2023-11-12] MEDS: Sodium Chloride/Potassium Chloride Tab PO SCH ×2 (08:25→23:23)
[2023-11-12] MEDS: Aspirin 81 MG Tab.EC PO SCH ×2 (09:09→23:30)
[2023-11-12] MEDS ORDERED: ALKA SELTZER PO PRN (09:38)
[2023-11-12 10:05] LABS: CHOLESTEROL TOTAL 87 mg/dL (0-199); TSH ULTRASENSITIVE 5.002 uIU/mL (0.358-3.74)
[2023-11-12 10:24] LABS: CHOLESTEROL HDL 35 mg/dL (40-59)
[2023-11-12 10:44] LABS: CHOLESTEROL LDL CALCULATED 48 mg/dL (0-130); TRIGLYCERIDES < 22 mg/dL (0-149)
[2023-11-12] MEDS: Gabapentin 100 MG Cap PO SCH (23:25)
[2023-11-12] MEDS: Lidocaine 4% 1 each Patch TOP SCH (23:31)
[2023-11-13] MEDS: oxyCODONE 5 MG Tab PO PRN ×4 (03:38→20:34)
[2023-11-13] MEDS: Metoclopramide 5 MG Tab PO SCH ×3 (06:40→17:07)
[2023-11-13] MEDS: Pantoprazole 40 MG Tab.CR PO SCH (06:40)
[2023-11-13] MEDS: Ondansetron 4 MG Tab.DIS PO PRN ×2 (08:45→17:07)
[2023-11-13 08:46] LABS: CALCIUM 8.1 mg/dL (8.5-10.1); CREATININE 0.7 mg/dL (0.70-1.30); EST CRCL DRUG DOSING (CG) 86.77 mL/min; POTASSIUM,K 4.1 mmol/L (3.5-5.1)
[2023-11-13] MEDS: Finasteride 5 MG Tab PO SCH (08:46)
[2023-11-13] MEDS: Sodium Chloride/Potassium Chloride Tab PO SCH ×2 (08:46→20:32)
[2023-11-13] MEDS: Sennosides 8.6 MG Tab PO SCH ×2 (08:46→20:33)
[2023-11-13] MEDS: Aspirin 81 MG Tab.EC PO SCH ×2 (08:46→20:32)
[2023-11-13] MEDS: Ciprofloxacin 250 MG Tab PO SCH ×2 (08:46→20:31)
[2023-11-13] MEDS: valACYclovir 1,000 MG Tab PO SCH ×2 (08:46→20:33)
[2023-11-13] MEDS: Tamsulosin 0.4 MG Cap.ER PO SCH ×2 (08:46→20:32)
[2023-11-13] MEDS: Metoprolol Tartrate 25 MG Tab PO SCH (08:46)
[2023-11-13] MEDS: atorvaSTATin 40 MG Tab PO SCH (08:48)
[2023-11-13 08:52] LABS: ANION GAP 11.1 mmol/L (5-15); INR 1.1 (0.9-1.1); PROTHROMBIN TIME 11.6 SEC (9.5-12.2)
[2023-11-13] MEDS ORDERED: Sodium Chloride 1 GM Tab PO SCH (11:30)
[2023-11-13] MEDS: Gabapentin 100 MG Cap PO SCH (20:31)
[2023-11-13] MEDS: Lidocaine 4% 1 each Patch TOP SCH (20:35)
[2023-11-14] MEDS: oxyCODONE 5 MG Tab PO PRN ×4 (04:01→21:12)
[2023-11-14] MEDS: Metoclopramide 5 MG Tab PO SCH ×3 (06:35→17:09)
[2023-11-14] MEDS: Pantoprazole 40 MG Tab.CR PO SCH (06:35)
[2023-11-14 08:07] LABS: URINE SODIUM <10 mEq/L
[2023-11-14] MEDS: Ciprofloxacin 250 MG Tab PO SCH ×2 (09:29→21:15)
[2023-11-14] MEDS: Sodium Chloride/Potassium Chloride Tab PO SCH ×3 (09:29→21:10)
[2023-11-14] MEDS: Aspirin 81 MG Tab.EC PO SCH ×2 (09:30→21:14)
[2023-11-14] MEDS: Tamsulosin 0.4 MG Cap.ER PO SCH ×2 (09:30→21:12)
[2023-11-14] MEDS: Metoprolol Tartrate 25 MG Tab PO SCH (09:30)
[2023-11-14] MEDS: Sennosides 8.6 MG Tab PO SCH (09:32)
[2023-11-14] MEDS: Finasteride 5 MG Tab PO SCH (09:32)
[2023-11-14] MEDS: atorvaSTATin 40 MG Tab PO SCH (09:32)
[2023-11-14] MEDS: valACYclovir 1,000 MG Tab PO SCH ×2 (09:32→21:10)
[2023-11-14] MEDS: Ondansetron 4 MG Tab.DIS PO PRN ×3 (09:40→21:11)
[2023-11-14] MEDS: Lactulose Soln 10 GM/15 ML 30 ML UD Cup PO SCH ×2 (18:33→21:16)
[2023-11-14] MEDS: Gabapentin 100 MG Cap PO SCH (21:13)
[2023-11-14] MEDS: Lidocaine 4% 1 each Patch TOP SCH (21:17)
[2023-11-15] MEDS: Sennosides 8.6 MG Tab PO SCH ×2 (02:01→10:29)
[2023-11-15] MEDS: Metoclopramide 5 MG Tab PO SCH ×2 (06:19→10:30)
[2023-11-15] MEDS: Pantoprazole 40 MG Tab.CR PO SCH (06:19)
[2023-11-15] MEDS: oxyCODONE 5 MG Tab PO PRN ×2 (06:24→15:24)
[2023-11-15 07:17] LABS: HEMATOCRIT 33.5 % (40.0-52.0); HEMOGLOBIN 11.6 g/dL (14.0-18.0); MEAN CORPUSCULAR HEMOGLOBIN 35.4 pg (26.0-32.0); MEAN CORPUSCULAR HGB CONC 34.6 g/dL (32.0-36.0); MEAN CORPUSCULAR VOLUME 102.1 fL (78.0-93.0); PLATELET COUNT,PLT 96 x10^3/uL (130-400); RED BLOOD CELL COUNT 3.28 x10^6/uL (4.5-6.0); WHITE BLOOD CELL COUNT,WBC 9.2 x10^3/uL (4.0-10.0)
[2023-11-15 07:32] LABS: A/G RATIO 0.86; ALBUMIN 2.4 g/dL (3.4-5.0); BILIRUBIN TOTAL 2.4 mg/dL (0.2-1.0); CREATININE 0.7 mg/dL (0.70-1.30); EST CRCL DRUG DOSING (CG) 86.77 mL/min; POTASSIUM,K 4.4 mmol/L (3.5-5.1); PROTEIN TOTAL,TP 5.2 g/dL (6.4-8.2)
[2023-11-15 07:35] LABS: ANION GAP 10.4 mmol/L (5-15)
[2023-11-15 07:46] LABS: BAND PERCENT MAN 3 % (0-6); EOSINOPHILS ABSOLUTE MAN 0.1 x10^3/uL (0.0-0.5); EOSINOPHILS PERCENT MAN 1 % (0-4); LYMPHOCYTES % ATYPICAL MANUAL 3 % (0); LYMPHOCYTES ABSOLUTE MAN 2.6 x10^3/uL (1.0-4.8); LYMPHOCYTES PERCENT MAN 25 % (25-50); MONOCYTES ABSOLUTE MAN 0.7 x10^3/uL (0.0-0.8); MONOCYTES PERCENT MAN 8 % (2-11); NEUTROPHILS ABSOLUTE MAN 5.8 x10^3/uL (1.8-7.7); SEG NEUTROPHILS PERCENT MAN 60 % (50-80)
[2023-11-15 07:47] LABS: ANISOCYTOSIS 2+ MODERATE; HYPOCHROMASIA 1+ SLIGHT; PLATELET COUNT ESTIMATE DECREASED
[2023-11-15] MEDS ORDERED: Levothyroxine 25 MCG Tab PO SCH (08:12)
[2023-11-15] MEDS ORDERED: Sodium Chloride 0.9% 10 ML Syringe FLUSH PRN (09:03)
[2023-11-15] MEDS ORDERED: Iopamidol 612 MG/ML 100 ML Bottle IVPUSH ONE (09:04)
[2023-11-15] MEDS ORDERED: Iopamidol 612 MG/ML 30 ML SDV PO ONE (09:04)
[2023-11-15] MEDS ORDERED: Furosemide 20 MG/2 ML VIAL IV ONE (09:30)
[2023-11-15] MEDS: Sodium Chloride/Potassium Chloride Tab PO SCH ×2 (10:29→12:52)
[2023-11-15] MEDS: atorvaSTATin 40 MG Tab PO SCH (10:29)
[2023-11-15] MEDS: valACYclovir 1,000 MG Tab PO SCH (10:29)
[2023-11-15] MEDS: Aspirin 81 MG Tab.EC PO SCH (10:30)
[2023-11-15] MEDS: Metoprolol Tartrate 25 MG Tab PO SCH (10:30)
[2023-11-15] MEDS: Ciprofloxacin 250 MG Tab PO SCH (10:30)
[2023-11-15] MEDS: Tamsulosin 0.4 MG Cap.ER PO SCH (10:30)
[2023-11-15] MEDS: Finasteride 5 MG Tab PO SCH (10:30)
[2023-11-15] MEDS: Lactulose Soln 10 GM/15 ML 30 ML UD Cup PO SCH (10:32)
[2023-11-15 10:40] VITALS: BP 131/73; PULSE 85
== END 2023-11-15 16:34 | disposition critical access hospital (66) | DRG 559 ==
LOC: VM.MS 12:20
PROVIDERS: ADMIT Internal Medicine; ATTEND Internal Medicine
DX: S72.141D Displaced intertrochanteric fracture of right femur, subsequent encounter for closed fracture with routine healing (principal); J18.9 Pneumonia, unspecified organism; J69.0 Pneumonitis due to inhalation of food and vomit; C91.10 Chronic lymphocytic leukemia of B-cell type not having achieved remission; D62 Acute posthemorrhagic anemia; R18.8 Other ascites; E87.1 Hypo-osmolality and hyponatremia; I50.32 Chronic diastolic (congestive) heart failure; N39.0 Urinary tract infection, site not specified; E44.0 Moderate protein-calorie malnutrition; K74.60 Unspecified cirrhosis of liver; S40.022D Contusion of left upper arm, subsequent encounter; I11.0 Hypertensive heart disease with heart failure; K76.82 Hepatic encephalopathy; M25.511 Pain in right shoulder; N40.1 Benign prostatic hyperplasia with lower urinary tract symptoms; G70.00 Myasthenia gravis without (acute) exacerbation; J44.9 Chronic obstructive pulmonary disease, unspecified; I25.10 Atherosclerotic heart disease of native coronary artery without angina pectoris; E78.5 Hyperlipidemia, unspecified; I48.0 Paroxysmal atrial fibrillation; R33.8 Other retention of urine; K21.9 Gastro-esophageal reflux disease without esophagitis; D69.6 Thrombocytopenia, unspecified; K59.00 Constipation, unspecified; Z95.1 Presence of aortocoronary bypass graft; Z98.890 Other specified postprocedural states; Z87.442 Personal history of urinary calculi; Z79.899 Other long term (current) drug therapy; W01.0XXD Fall on same level from slipping, tripping and stumbling without subsequent striking against object, subsequent encounter
CPT/HCPCS: 36415; 51701; 51702; 51703; 51798; 71045; 74019; 74177; 80048; 80053; 80061; 81001; 82140; 82533; 83690; 83735; 83880; 83930; 83935; 84300; 84443; 84550; 85025; 85610; 86850; 86900; 86901; 87070; 87086; 87088; 87186; 95851-GO; 97110-GP; 97116-GP; 97162-GP; 97165-GO; 97530-GO; 97530-GP; 97535-GO; A9270-GY; C1758; J1940; J7500; Q9967

== ENCOUNTER 2023-11-15 09:45 | Inpatient (IN) | payer MEDICARE, BC ==
[2023-11-15] MEDS ORDERED: Melatonin 3 MG Tab PO PRN (15:37)
[2023-11-15] MEDS ORDERED: Ondansetron 4 MG Tab.DIS PO PRN (15:37)
[2023-11-15] MEDS ORDERED: Polyethylene Glycol 3350 Powder 17 GM Packet PO PRN (15:37)
[2023-11-15] MEDS ORDERED: diphenhydrAMINE 25 MG Cap PO PRN (15:37)
[2023-11-15] MEDS ORDERED: Sodium Chloride 0.9% 10 ML Syringe FLUSH PRN ×2 (15:37)
[2023-11-15] MEDS ORDERED: ALKA SELTZER PO PRN (15:37)
[2023-11-15] MEDS ORDERED: oxyCODONE 5 MG Tab PO PRN (15:37)
[2023-11-15] MEDS ORDERED: Magnesium Hydroxide 400 MG/5 ML Susp 30 ML Cup PO PRN (15:37)
[2023-11-15] MEDS: Metoclopramide 5 MG Tab PO SCH (17:23)
[2023-11-15] MEDS ORDERED: Gabapentin 100 MG Cap PO SCH (21:00)
[2023-11-15] MEDS ORDERED: Lidocaine 4% 1 each Patch TOP SCH (21:00)
[2023-11-15] MEDS ORDERED: Sennosides 8.6 MG Tab PO SCH (21:00)
[2023-11-15] MEDS: valACYclovir 1,000 MG Tab PO SCH (21:05)
[2023-11-15] MEDS: Ciprofloxacin 250 MG Tab PO SCH (21:06)
[2023-11-15] MEDS: Aspirin 81 MG Tab.EC PO SCH (21:06)
[2023-11-15] MEDS: Tamsulosin 0.4 MG Cap.ER PO SCH (21:06)
[2023-11-15] MEDS: Lactulose Soln 10 GM/15 ML 30 ML UD Cup PO SCH (21:08)
[2023-11-16] MEDS: Metoclopramide 5 MG Tab PO SCH (06:04)
[2023-11-16] MEDS ORDERED: Levothyroxine 25 MCG Tab PO SCH (07:00)
[2023-11-16] MEDS ORDERED: Pantoprazole 40 MG Tab.CR PO SCH (07:00)
[2023-11-16 07:02] LABS: BASOPHILS PERCENT AUTO 0.5 % (0.2-1.2); EOSINOPHILS ABSOLUTE AUTO 0.1 x10^3/uL (0.0-0.5); EOSINOPHILS PERCENT AUTO 1.4 % (0.0-4.0); HEMATOCRIT 33.1 % (40.0-52.0); HEMOGLOBIN 11.5 g/dL (14.0-18.0); IMMATURE GRAN ABSOLUTE AUTO 0.16 x10^3/uL (0.00-0.07); LYMPHOCYTES ABSOLUTE AUTO 2.4 x10^3/uL (1.0-4.8); LYMPHOCYTES PERCENT AUTO 28.3 % (25.0-50.0); MEAN CORPUSCULAR HEMOGLOBIN 35.6 pg (26.0-32.0); MEAN CORPUSCULAR HGB CONC 34.7 g/dL (32.0-36.0); MEAN CORPUSCULAR VOLUME 102.5 fL (78.0-93.0); MONOCYTES ABSOLUTE AUTO 0.8 x10^3/uL (0.0-0.8); MONOCYTES PERCENT AUTO 9.4 % (2.0-11.0); NEUTROPHILS ABSOLUTE AUTO 4.9 x10^3/uL (1.8-7.7); NEUTROPHILS PERCENT AUTO 58.5 % (50.0-80.0); RED BLOOD CELL COUNT 3.23 x10^6/uL (4.5-6.0); WHITE BLOOD CELL COUNT,WBC 8.3 x10^3/uL (4.0-10.0)
[2023-11-16 07:19] LABS: PLATELET COUNT,PLT 81 x10^3/uL (130-400)
[2023-11-16] MEDS ORDERED: Furosemide 40 MG/4 ML VIAL IV ONE (07:24)
[2023-11-16 07:25] LABS: A/G RATIO 0.85; ALBUMIN 2.3 g/dL (3.4-5.0); BILIRUBIN TOTAL 2.4 mg/dL (0.2-1.0); CALCIUM 8.1 mg/dL (8.5-10.1); CREATININE 0.7 mg/dL (0.70-1.30); EST CRCL DRUG DOSING (CG) 84.68 mL/min; POTASSIUM,K 4.4 mmol/L (3.5-5.1)
[2023-11-16 07:26] LABS: ANION GAP 10.4 mmol/L (5-15)
[2023-11-16 08:06] VITALS: BP 121/65; PULSE 80
[2023-11-16] MEDS: Ciprofloxacin 250 MG Tab PO SCH (08:06)
[2023-11-16] MEDS: valACYclovir 1,000 MG Tab PO SCH (08:06)
[2023-11-16] MEDS: Tamsulosin 0.4 MG Cap.ER PO SCH (08:06)
[2023-11-16] MEDS: Lactulose Soln 10 GM/15 ML 30 ML UD Cup PO SCH (08:07)
[2023-11-16] MEDS: Aspirin 81 MG Tab.EC PO SCH (08:07)
[2023-11-16] MEDS ORDERED: Finasteride 5 MG Tab PO SCH (09:00)
[2023-11-16] MEDS ORDERED: Metoprolol Succinate 25 MG Tab.ER PO SCH (09:00)
[2023-11-16] MEDS ORDERED: Metoprolol Tartrate 25 MG Tab PO SCH (09:00)
[2023-11-16] MEDS ORDERED: atorvaSTATin 40 MG Tab PO SCH (09:00)
== END 2023-11-16 08:47 | disposition short-term general hospital (02) | DRG 559 ==
LOC: VM.MS 16:37
PROVIDERS: ADMIT Internal Medicine; ATTEND Internal Medicine
DX: S72.141D Displaced intertrochanteric fracture of right femur, subsequent encounter for closed fracture with routine healing (principal); E43 Unspecified severe protein-calorie malnutrition; C91.10 Chronic lymphocytic leukemia of B-cell type not having achieved remission; E87.1 Hypo-osmolality and hyponatremia; N39.0 Urinary tract infection, site not specified; R18.8 Other ascites; K74.60 Unspecified cirrhosis of liver; K76.82 Hepatic encephalopathy; N40.1 Benign prostatic hyperplasia with lower urinary tract symptoms; R33.8 Other retention of urine; I48.0 Paroxysmal atrial fibrillation; G70.00 Myasthenia gravis without (acute) exacerbation; K21.9 Gastro-esophageal reflux disease without esophagitis; I25.10 Atherosclerotic heart disease of native coronary artery without angina pectoris; D64.9 Anemia, unspecified; D69.6 Thrombocytopenia, unspecified; M54.50 Low back pain, unspecified; B96.20 Unspecified Escherichia coli [E. coli] as the cause of diseases classified elsewhere; Z87.442 Personal history of urinary calculi; Z96.651 Presence of right artificial knee joint; W01.0XXD Fall on same level from slipping, tripping and stumbling without subsequent striking against object, subsequent encounter
CPT/HCPCS: 36415; 80053; 82140; 85025; A9270-GY; J3490; J7500

== ENCOUNTER 2023-12-03 07:29 | Inpatient (IN) | payer MEDICARE, BC ==
[2023-12-03] MEDS ORDERED: Docusate Sodium 100 MG Cap PO PRN (12:28)
[2023-12-03] MEDS ORDERED: Acetaminophen 325 MG Tab PO PRN (12:28)
[2023-12-03] MEDS ORDERED: Hypromellose 0.3% Ophth Soln 15 ML Bottle EYEBOTH PRN (13:05)
[2023-12-03] MEDS: Aspirin 81 MG Tab.EC PO SCH (17:14)
[2023-12-03] MEDS: Acetaminophen/HYDROcodone 325-5 MG Tab PO PRN (17:14)
[2023-12-03] MEDS: Metoprolol Tartrate 25 MG Tab PO SCH (20:51)
[2023-12-03] MEDS: Tamsulosin 0.4 MG Cap.ER PO SCH (20:51)
[2023-12-03] MEDS: Gabapentin 100 MG Cap PO SCH (20:51)
[2023-12-03] MEDS: valACYclovir 1,000 MG Tab PO SCH (20:51)
[2023-12-04] MEDS: Levothyroxine 25 MCG Tab PO SCH (07:45)
[2023-12-04] MEDS: Pantoprazole 40 MG Tab.CR PO SCH (07:45)
[2023-12-04] MEDS: Spironolactone 25 MG Tab PO SCH (08:30)
[2023-12-04] MEDS: valACYclovir 1,000 MG Tab PO SCH ×2 (08:31→22:04)
[2023-12-04] MEDS: Calcium Carbonate/Vitamin D3 1250 MG-5 MCG Tab PO SCH (08:32)
[2023-12-04] MEDS: Aspirin 81 MG Tab.EC PO SCH ×2 (08:33→17:28)
[2023-12-04] MEDS: Ascorbic Acid 500 MG Tab PO SCH (08:33)
[2023-12-04] MEDS: Cyanocobalamin (Vitamin B12) 1,000 MCG Tab PO SCH (08:33)
[2023-12-04] MEDS: Finasteride 5 MG Tab PO SCH (08:34)
[2023-12-04] MEDS: Cholecalciferol (Vitamin D3) 5,000 UNIT Tab PO SCH (08:34)
[2023-12-04] MEDS: predniSONE 10 MG Tab PO SCH (08:35)
[2023-12-04] MEDS: Bumetanide 1 MG Tab PO SCH (08:35)
[2023-12-04] MEDS: atorvaSTATin 40 MG Tab PO SCH (08:36)
[2023-12-04] MEDS: Lactulose Soln 10 GM/15 ML 15 ML UD Cup PO SCH (08:36)
[2023-12-04] MEDS: [UNRECOGNIZED DRUG - OTHER] PO SCH (08:38)
[2023-12-04] MEDS: Acetaminophen/HYDROcodone 325-5 MG Tab PO PRN ×2 (08:51→14:49)
[2023-12-04] MEDS: Multivitamin Tab PO SCH (09:47)
[2023-12-04] MEDS: Gabapentin 100 MG Cap PO SCH (22:05)
[2023-12-04] MEDS: Tamsulosin 0.4 MG Cap.ER PO SCH (22:05)
[2023-12-04] MEDS: Metoprolol Tartrate 25 MG Tab PO SCH (22:06)
[2023-12-05] MEDS: Levothyroxine 25 MCG Tab PO SCH (08:19)
[2023-12-05] MEDS: Calcium Carbonate/Vitamin D3 1250 MG-5 MCG Tab PO SCH (08:19)
[2023-12-05] MEDS: Cholecalciferol (Vitamin D3) 5,000 UNIT Tab PO SCH (08:20)
[2023-12-05] MEDS: predniSONE 10 MG Tab PO SCH (08:20)
[2023-12-05] MEDS: Cyanocobalamin (Vitamin B12) 1,000 MCG Tab PO SCH (08:20)
[2023-12-05] MEDS: Aspirin 81 MG Tab.EC PO SCH ×2 (08:21→17:21)
[2023-12-05] MEDS: Multivitamin Tab PO SCH (08:21)
[2023-12-05] MEDS: Pantoprazole 40 MG Tab.CR PO SCH (08:22)
[2023-12-05] MEDS: valACYclovir 1,000 MG Tab PO SCH ×2 (08:23→21:18)
[2023-12-05] MEDS: Ascorbic Acid 500 MG Tab PO SCH (08:23)
[2023-12-05] MEDS: Finasteride 5 MG Tab PO SCH (08:24)
[2023-12-05] MEDS: Bumetanide 1 MG Tab PO SCH (08:24)
[2023-12-05] MEDS: Lactulose Soln 10 GM/15 ML 15 ML UD Cup PO SCH (08:24)
[2023-12-05] MEDS: Spironolactone 25 MG Tab PO SCH (08:25)
[2023-12-05] MEDS: atorvaSTATin 40 MG Tab PO SCH (08:25)
[2023-12-05] MEDS: [UNRECOGNIZED DRUG - OTHER] PO SCH (08:27)
[2023-12-05] MEDS: Acetaminophen/HYDROcodone 325-5 MG Tab PO PRN ×2 (14:39→22:31)
[2023-12-05] MEDS: Gabapentin 100 MG Cap PO SCH (21:19)
[2023-12-05] MEDS: Tamsulosin 0.4 MG Cap.ER PO SCH (21:20)
[2023-12-05] MEDS: Metoprolol Tartrate 25 MG Tab PO SCH (21:20)
[2023-12-06] MEDS: Pantoprazole 40 MG Tab.CR PO SCH (06:04)
[2023-12-06] MEDS: Levothyroxine 25 MCG Tab PO SCH (06:04)
[2023-12-06] MEDS: Acetaminophen/HYDROcodone 325-5 MG Tab PO PRN ×2 (06:07→21:14)
[2023-12-06 07:31] LABS: BILIRUBIN TOTAL 1.1 mg/dL (0.2-1.0); CALCIUM 8.1 mg/dL (8.5-10.1); CREATININE 0.8 mg/dL (0.70-1.30); EST CRCL DRUG DOSING (CG) 67.22 mL/min; POTASSIUM,K 3.6 mmol/L (3.5-5.1); PROTEIN TOTAL,TP 4.8 g/dL (6.4-8.2)
[2023-12-06 07:42] LABS: A/G RATIO 0.85; ALBUMIN 2.2 g/dL (3.4-5.0)
[2023-12-06 07:43] LABS: ANION GAP 9.6 mmol/L (5-15)
[2023-12-06 08:21] LABS: HEMATOCRIT 33.2 % (40.0-52.0); MEAN CORPUSCULAR HEMOGLOBIN 36.7 pg (26.0-32.0); MEAN CORPUSCULAR HGB CONC 33.1 g/dL (32.0-36.0); MEAN CORPUSCULAR VOLUME 110.7 fL (78.0-93.0); PLATELET COUNT,PLT 85 x10^3/uL (130-400); WHITE BLOOD CELL COUNT,WBC 11.5 x10^3/uL (4.0-10.0)
[2023-12-06 08:29] LABS: ANISOCYTOSIS 2+ MODERATE; BAND PERCENT MAN 3 % (0-6); HYPOCHROMASIA 2+ MODERATE; LYMPHOCYTES ABSOLUTE MAN 5.9 x10^3/uL (1.0-4.8); LYMPHOCYTES PERCENT MAN 51 % (25-50); MONOCYTES ABSOLUTE MAN 0.2 x10^3/uL (0.0-0.8); MONOCYTES PERCENT MAN 2 % (2-11); NEUTROPHILS ABSOLUTE MAN 5.4 x10^3/uL (1.8-7.7); PLATELET COUNT ESTIMATE DECREASED; SEG NEUTROPHILS PERCENT MAN 44 % (50-80); SMUDGE CELLS MODERATE; TARGET CELLS 1+ SLIGHT; TEARDROP CELLS 1+ SLIGHT
[2023-12-06] MEDS: Lactulose Soln 10 GM/15 ML 15 ML UD Cup PO SCH (09:10)
[2023-12-06] MEDS: valACYclovir 1,000 MG Tab PO SCH ×2 (09:10→21:01)
[2023-12-06] MEDS: Finasteride 5 MG Tab PO SCH (09:10)
[2023-12-06] MEDS: Multivitamin Tab PO SCH (09:11)
[2023-12-06] MEDS: Ascorbic Acid 500 MG Tab PO SCH (09:11)
[2023-12-06] MEDS: Calcium Carbonate/Vitamin D3 1250 MG-5 MCG Tab PO SCH (09:11)
[2023-12-06] MEDS: atorvaSTATin 40 MG Tab PO SCH (09:11)
[2023-12-06] MEDS: Spironolactone 25 MG Tab PO SCH (09:11)
[2023-12-06] MEDS: Bumetanide 1 MG Tab PO SCH (09:11)
[2023-12-06] MEDS: Cyanocobalamin (Vitamin B12) 1,000 MCG Tab PO SCH (09:11)
[2023-12-06] MEDS: Aspirin 81 MG Tab.EC PO SCH ×2 (09:11→18:13)
[2023-12-06] MEDS: Cholecalciferol (Vitamin D3) 5,000 UNIT Tab PO SCH (09:11)
[2023-12-06] MEDS: [UNRECOGNIZED DRUG - OTHER] PO SCH (09:13)
[2023-12-06] MEDS: predniSONE 10 MG Tab PO SCH (09:15)
[2023-12-06] MEDS: Metoprolol Tartrate 25 MG Tab PO SCH (21:02)
[2023-12-06] MEDS: Tamsulosin 0.4 MG Cap.ER PO SCH (21:03)
[2023-12-06] MEDS: Gabapentin 100 MG Cap PO SCH (21:03)
[2023-12-07] MEDS: Prochlorperazine 5 MG Tab PO PRN ×2 (06:29→21:00)
[2023-12-07] MEDS: Ondansetron 4 MG Tab.DIS PO PRN (08:24)
[2023-12-07] MEDS: Pantoprazole 40 MG Tab.CR PO SCH (11:29)
[2023-12-07] MEDS: Levothyroxine 25 MCG Tab PO SCH (11:29)
[2023-12-07] MEDS: predniSONE 10 MG Tab PO SCH (11:30)
[2023-12-07] MEDS: Spironolactone 25 MG Tab PO SCH (11:30)
[2023-12-07] MEDS: Bumetanide 1 MG Tab PO SCH (11:31)
[2023-12-07] MEDS: valACYclovir 1,000 MG Tab PO SCH ×2 (11:32→21:02)
[2023-12-07] MEDS: Aspirin 81 MG Tab.EC PO SCH ×2 (11:32→18:16)
[2023-12-07] MEDS: Lactulose Soln 10 GM/15 ML 15 ML UD Cup PO SCH (11:33)
[2023-12-07] MEDS: Multivitamin Tab PO SCH (11:34)
[2023-12-07] MEDS: atorvaSTATin 40 MG Tab PO SCH (11:35)
[2023-12-07] MEDS: Calcium Carbonate/Vitamin D3 1250 MG-5 MCG Tab PO SCH (11:35)
[2023-12-07] MEDS: [UNRECOGNIZED DRUG - OTHER] PO SCH (11:36)
[2023-12-07] MEDS: Finasteride 5 MG Tab PO SCH (11:37)
[2023-12-07] MEDS: Ascorbic Acid 500 MG Tab PO SCH (11:38)
[2023-12-07] MEDS: Cyanocobalamin (Vitamin B12) 1,000 MCG Tab PO SCH (11:38)
[2023-12-07] MEDS: Cholecalciferol (Vitamin D3) 5,000 UNIT Tab PO SCH (11:38)
[2023-12-07] MEDS: Acetaminophen/HYDROcodone 325-5 MG Tab PO PRN (16:22)
[2023-12-07] MEDS: Gabapentin 100 MG Cap PO SCH (21:02)
[2023-12-07] MEDS: Metoprolol Tartrate 25 MG Tab PO SCH (21:03)
[2023-12-07] MEDS: Tamsulosin 0.4 MG Cap.ER PO SCH (21:03)
[2023-12-08] MEDS: Acetaminophen/HYDROcodone 325-5 MG Tab PO PRN ×2 (06:13→21:19)
[2023-12-08] MEDS: Levothyroxine 25 MCG Tab PO SCH (06:14)
[2023-12-08] MEDS: Pantoprazole 40 MG Tab.CR PO SCH (06:14)
[2023-12-08] MEDS: Lactulose Soln 10 GM/15 ML 15 ML UD Cup PO SCH (09:25)
[2023-12-08] MEDS: Bumetanide 1 MG Tab PO SCH (09:26)
[2023-12-08] MEDS: Ascorbic Acid 500 MG Tab PO SCH (09:26)
[2023-12-08] MEDS: Finasteride 5 MG Tab PO SCH (09:26)
[2023-12-08] MEDS: Aspirin 81 MG Tab.EC PO SCH ×2 (09:26→18:07)
[2023-12-08] MEDS: Multivitamin Tab PO SCH (09:26)
[2023-12-08] MEDS: Spironolactone 25 MG Tab PO SCH (09:26)
[2023-12-08] MEDS: Cholecalciferol (Vitamin D3) 5,000 UNIT Tab PO SCH (09:26)
[2023-12-08] MEDS: valACYclovir 1,000 MG Tab PO SCH ×2 (09:26→21:15)
[2023-12-08] MEDS: Calcium Carbonate/Vitamin D3 1250 MG-5 MCG Tab PO SCH (09:26)
[2023-12-08] MEDS: predniSONE 10 MG Tab PO SCH (09:27)
[2023-12-08] MEDS: Cyanocobalamin (Vitamin B12) 1,000 MCG Tab PO SCH (09:27)
[2023-12-08] MEDS: atorvaSTATin 40 MG Tab PO SCH (09:27)
[2023-12-08] MEDS: [UNRECOGNIZED DRUG - OTHER] PO SCH (09:29)
[2023-12-08] MEDS: Metoprolol Tartrate 25 MG Tab PO SCH (21:18)
[2023-12-08] MEDS: Tamsulosin 0.4 MG Cap.ER PO SCH (21:19)
[2023-12-08] MEDS: Gabapentin 100 MG Cap PO SCH (21:20)
[2023-12-09] MEDS: Levothyroxine 25 MCG Tab PO SCH (06:54)
[2023-12-09] MEDS: Pantoprazole 40 MG Tab.CR PO SCH (06:54)
[2023-12-09] MEDS: valACYclovir 1,000 MG Tab PO SCH ×2 (09:03→20:57)
[2023-12-09] MEDS: Cyanocobalamin (Vitamin B12) 1,000 MCG Tab PO SCH (09:03)
[2023-12-09] MEDS: Spironolactone 25 MG Tab PO SCH (09:03)
[2023-12-09] MEDS: Finasteride 5 MG Tab PO SCH (09:05)
[2023-12-09] MEDS: predniSONE 10 MG Tab PO SCH (09:05)
[2023-12-09] MEDS: Aspirin 81 MG Tab.EC PO SCH ×2 (09:05→19:16)
[2023-12-09] MEDS: Bumetanide 1 MG Tab PO SCH (09:05)
[2023-12-09] MEDS: Lactulose Soln 10 GM/15 ML 15 ML UD Cup PO SCH (09:06)
[2023-12-09] MEDS: Calcium Carbonate/Vitamin D3 1250 MG-5 MCG Tab PO SCH (09:06)
[2023-12-09] MEDS: Cholecalciferol (Vitamin D3) 5,000 UNIT Tab PO SCH (09:06)
[2023-12-09] MEDS: Ascorbic Acid 500 MG Tab PO SCH (09:06)
[2023-12-09] MEDS: Multivitamin Tab PO SCH (09:06)
[2023-12-09] MEDS: [UNRECOGNIZED DRUG - OTHER] PO SCH (09:07)
[2023-12-09] MEDS: atorvaSTATin 40 MG Tab PO SCH (09:09)
[2023-12-09] MEDS: Metoprolol Tartrate 25 MG Tab PO SCH (20:58)
[2023-12-09] MEDS: Gabapentin 100 MG Cap PO SCH (21:05)
[2023-12-09] MEDS: Tamsulosin 0.4 MG Cap.ER PO SCH (21:05)
[2023-12-10] MEDS: Acetaminophen/HYDROcodone 325-5 MG Tab PO PRN (02:18)
[2023-12-10] MEDS: Levothyroxine 25 MCG Tab PO SCH (06:17)
[2023-12-10] MEDS: Pantoprazole 40 MG Tab.CR PO SCH (06:17)
[2023-12-10 07:10] LABS: BASOPHILS PERCENT AUTO 0.2 % (0.2-1.2); EOSINOPHILS PERCENT AUTO 0.1 % (0.0-4.0); HEMATOCRIT 32.3 % (40.0-52.0); HEMOGLOBIN 10.7 g/dL (14.0-18.0); IMMATURE GRAN ABSOLUTE AUTO 0.02 x10^3/uL (0.00-0.07); LYMPHOCYTES ABSOLUTE AUTO 5.6 x10^3/uL (1.0-4.8); LYMPHOCYTES PERCENT AUTO 63.3 % (25.0-50.0); MEAN CORPUSCULAR HEMOGLOBIN 36.6 pg (26.0-32.0); MEAN CORPUSCULAR HGB CONC 33.1 g/dL (32.0-36.0); MEAN CORPUSCULAR VOLUME 110.6 fL (78.0-93.0); MONOCYTES ABSOLUTE AUTO 0.6 x10^3/uL (0.0-0.8); MONOCYTES PERCENT AUTO 6.3 % (2.0-11.0); NEUTROPHILS ABSOLUTE AUTO 2.6 x10^3/uL (1.8-7.7); NEUTROPHILS PERCENT AUTO 29.9 % (50.0-80.0); PLATELET COUNT,PLT 69 x10^3/uL (130-400); RED BLOOD CELL COUNT 2.92 x10^6/uL (4.5-6.0); WHITE BLOOD CELL COUNT,WBC 8.8 x10^3/uL (4.0-10.0)
[2023-12-10 07:34] LABS: A/G RATIO 0.79; ALBUMIN 2.2 g/dL (3.4-5.0); CALCIUM 8.1 mg/dL (8.5-10.1); CREATININE 0.8 mg/dL (0.70-1.30); EST CRCL DRUG DOSING (CG) 68.69 mL/min; POTASSIUM,K 3.5 mmol/L (3.5-5.1)
[2023-12-10 07:36] LABS: ANION GAP 11.5 mmol/L (5-15)
[2023-12-10] MEDS: Lactulose Soln 10 GM/15 ML 15 ML UD Cup PO SCH (10:24)
[2023-12-10] MEDS: Spironolactone 25 MG Tab PO SCH (10:25)
[2023-12-10] MEDS: Ascorbic Acid 500 MG Tab PO SCH (10:25)
[2023-12-10] MEDS: atorvaSTATin 40 MG Tab PO SCH (10:26)
[2023-12-10] MEDS: valACYclovir 1,000 MG Tab PO SCH ×2 (10:26→21:59)
[2023-12-10] MEDS: predniSONE 10 MG Tab PO SCH (10:27)
[2023-12-10] MEDS: Cyanocobalamin (Vitamin B12) 1,000 MCG Tab PO SCH (10:28)
[2023-12-10] MEDS: Calcium Carbonate/Vitamin D3 1250 MG-5 MCG Tab PO SCH (10:28)
[2023-12-10] MEDS: Multivitamin Tab PO SCH (10:28)
[2023-12-10] MEDS: Bumetanide 1 MG Tab PO SCH (10:29)
[2023-12-10] MEDS: Aspirin 81 MG Tab.EC PO SCH ×2 (10:29→18:18)
[2023-12-10] MEDS: Finasteride 5 MG Tab PO SCH (10:29)
[2023-12-10] MEDS: Cholecalciferol (Vitamin D3) 5,000 UNIT Tab PO SCH (10:29)
[2023-12-10] MEDS: [UNRECOGNIZED DRUG - OTHER] PO SCH (10:31)
[2023-12-10] MEDS: Gabapentin 100 MG Cap PO SCH (21:59)
[2023-12-10] MEDS: Metoprolol Tartrate 25 MG Tab PO SCH (21:59)
[2023-12-10] MEDS: Tamsulosin 0.4 MG Cap.ER PO SCH (21:59)
[2023-12-11] MEDS: Levothyroxine 25 MCG Tab PO SCH (06:31)
[2023-12-11] MEDS: Pantoprazole 40 MG Tab.CR PO SCH (06:31)
[2023-12-11] MEDS: valACYclovir 1,000 MG Tab PO SCH ×2 (09:02→20:13)
[2023-12-11] MEDS: Bumetanide 1 MG Tab PO SCH (09:03)
[2023-12-11] MEDS: Spironolactone 25 MG Tab PO SCH (09:04)
[2023-12-11] MEDS: Multivitamin Tab PO SCH (09:04)
[2023-12-11] MEDS: Cholecalciferol (Vitamin D3) 5,000 UNIT Tab PO SCH (09:05)
[2023-12-11] MEDS: Calcium Carbonate/Vitamin D3 1250 MG-5 MCG Tab PO SCH (09:05)
[2023-12-11] MEDS: atorvaSTATin 40 MG Tab PO SCH (09:06)
[2023-12-11] MEDS: predniSONE 10 MG Tab PO SCH (09:06)
[2023-12-11] MEDS: Ascorbic Acid 500 MG Tab PO SCH (09:06)
[2023-12-11] MEDS: Aspirin 81 MG Tab.EC PO SCH ×2 (09:06→18:34)
[2023-12-11] MEDS: Cyanocobalamin (Vitamin B12) 1,000 MCG Tab PO SCH (09:07)
[2023-12-11] MEDS: Lactulose Soln 10 GM/15 ML 15 ML UD Cup PO SCH (09:07)
[2023-12-11] MEDS: Finasteride 5 MG Tab PO SCH (09:07)
[2023-12-11] MEDS: [UNRECOGNIZED DRUG - OTHER] PO SCH (09:09)
[2023-12-11] MEDS: Metoprolol Tartrate 25 MG Tab PO SCH (20:12)
[2023-12-11] MEDS: Tamsulosin 0.4 MG Cap.ER PO SCH (20:15)
[2023-12-11] MEDS: Gabapentin 100 MG Cap PO SCH (20:16)
[2023-12-12] MEDS: Pantoprazole 40 MG Tab.CR PO SCH (06:16)
[2023-12-12] MEDS: Levothyroxine 25 MCG Tab PO SCH (06:19)
[2023-12-12] MEDS: [UNRECOGNIZED DRUG - OTHER] PO SCH (10:52)
[2023-12-12] MEDS: valACYclovir 1,000 MG Tab PO SCH ×2 (10:53→20:51)
[2023-12-12] MEDS: Bumetanide 1 MG Tab PO SCH (10:54)
[2023-12-12] MEDS: Calcium Carbonate/Vitamin D3 1250 MG-5 MCG Tab PO SCH (10:54)
[2023-12-12] MEDS: Aspirin 81 MG Tab.EC PO SCH ×2 (10:55→18:15)
[2023-12-12] MEDS: Multivitamin Tab PO SCH (10:56)
[2023-12-12] MEDS: Spironolactone 25 MG Tab PO SCH (10:57)
[2023-12-12] MEDS: Cyanocobalamin (Vitamin B12) 1,000 MCG Tab PO SCH (10:57)
[2023-12-12] MEDS: atorvaSTATin 40 MG Tab PO SCH (10:57)
[2023-12-12] MEDS: Cholecalciferol (Vitamin D3) 5,000 UNIT Tab PO SCH (10:58)
[2023-12-12] MEDS: Finasteride 5 MG Tab PO SCH (10:58)
[2023-12-12] MEDS: Ascorbic Acid 500 MG Tab PO SCH (10:58)
[2023-12-12] MEDS: predniSONE 10 MG Tab PO SCH (10:59)
[2023-12-12] MEDS: Metoprolol Tartrate 25 MG Tab PO SCH (20:51)
[2023-12-12] MEDS: Gabapentin 100 MG Cap PO SCH (20:53)
[2023-12-12] MEDS: Tamsulosin 0.4 MG Cap.ER PO SCH (20:53)
[2023-12-13] MEDS: Pantoprazole 40 MG Tab.CR PO SCH (06:27)
[2023-12-13] MEDS: Levothyroxine 25 MCG Tab PO SCH (06:27)
[2023-12-13] MEDS: Finasteride 5 MG Tab PO SCH (09:27)
[2023-12-13] MEDS: valACYclovir 1,000 MG Tab PO SCH ×2 (09:27→20:31)
[2023-12-13] MEDS: Spironolactone 25 MG Tab PO SCH (09:28)
[2023-12-13] MEDS: predniSONE 10 MG Tab PO SCH (09:29)
[2023-12-13] MEDS: Calcium Carbonate/Vitamin D3 1250 MG-5 MCG Tab PO SCH (09:30)
[2023-12-13] MEDS: Cholecalciferol (Vitamin D3) 5,000 UNIT Tab PO SCH (09:30)
[2023-12-13] MEDS: Aspirin 81 MG Tab.EC PO SCH ×2 (09:30→18:15)
[2023-12-13] MEDS: Bumetanide 1 MG Tab PO SCH (09:31)
[2023-12-13] MEDS: Multivitamin Tab PO SCH (09:31)
[2023-12-13] MEDS: Cyanocobalamin (Vitamin B12) 1,000 MCG Tab PO SCH (09:32)
[2023-12-13] MEDS: [UNRECOGNIZED DRUG - OTHER] PO SCH (09:33)
[2023-12-13] MEDS: Ascorbic Acid 500 MG Tab PO SCH (09:36)
[2023-12-13] MEDS: atorvaSTATin 40 MG Tab PO SCH (09:36)
[2023-12-13] MEDS: Metoprolol Tartrate 25 MG Tab PO SCH (20:32)
[2023-12-13] MEDS: Tamsulosin 0.4 MG Cap.ER PO SCH (20:34)
[2023-12-13] MEDS: Gabapentin 100 MG Cap PO SCH (20:34)
[2023-12-14] MEDS: Levothyroxine 25 MCG Tab PO SCH (06:24)
[2023-12-14] MEDS: Pantoprazole 40 MG Tab.CR PO SCH (06:24)
[2023-12-14 06:56] LABS: HEMATOCRIT 36.5 % (40.0-52.0); MEAN CORPUSCULAR HEMOGLOBIN 36.8 pg (26.0-32.0); MEAN CORPUSCULAR HGB CONC 32.9 g/dL (32.0-36.0); PLATELET COUNT,PLT 79 x10^3/uL (130-400); RED BLOOD CELL COUNT 3.26 x10^6/uL (4.5-6.0); WHITE BLOOD CELL COUNT,WBC 13.5 x10^3/uL (4.0-10.0)
[2023-12-14 07:13] LABS: ANISOCYTOSIS 2+ MODERATE; BAND PERCENT MAN 4 % (0-6); BLASTS PERCENT MAN 1 % (0); LYMPHOCYTES % ATYPICAL MANUAL 12 % (0); LYMPHOCYTES ABSOLUTE MAN 9.3 x10^3/uL (1.0-4.8); LYMPHOCYTES PERCENT MAN 57 % (25-50); MONOCYTES ABSOLUTE MAN 0.5 x10^3/uL (0.0-0.8); MONOCYTES PERCENT MAN 4 % (2-11); NEUTROPHILS ABSOLUTE MAN 3.5 x10^3/uL (1.8-7.7); PLATELET COUNT ESTIMATE DECREASED; SEG NEUTROPHILS PERCENT MAN 22 % (50-80)
[2023-12-14 07:14] LABS: HYPOCHROMASIA 1+ SLIGHT; OVALOCYTES 1+ SLIGHT
[2023-12-14 07:15] LABS: A/G RATIO 0.93; ALBUMIN 2.5 g/dL (3.4-5.0); ANION GAP 9.7 mmol/L (5-15); BILIRUBIN TOTAL 1.1 mg/dL (0.2-1.0); CALCIUM 8.3 mg/dL (8.5-10.1); CREATININE 0.7 mg/dL (0.70-1.30); EST CRCL DRUG DOSING (CG) 71.72 mL/min; POTASSIUM,K 3.7 mmol/L (3.5-5.1); PROTEIN TOTAL,TP 5.2 g/dL (6.4-8.2)
[2023-12-14] MEDS: Spironolactone 25 MG Tab PO SCH (08:22)
[2023-12-14] MEDS: Cholecalciferol (Vitamin D3) 5,000 UNIT Tab PO SCH (08:22)
[2023-12-14] MEDS: Ascorbic Acid 500 MG Tab PO SCH (08:22)
[2023-12-14] MEDS: Aspirin 81 MG Tab.EC PO SCH ×2 (08:23→18:11)
[2023-12-14] MEDS: Cyanocobalamin (Vitamin B12) 1,000 MCG Tab PO SCH (08:23)
[2023-12-14] MEDS: Multivitamin Tab PO SCH (08:23)
[2023-12-14] MEDS: predniSONE 10 MG Tab PO SCH (08:23)
[2023-12-14] MEDS: Calcium Carbonate/Vitamin D3 1250 MG-5 MCG Tab PO SCH (08:23)
[2023-12-14] MEDS: Bumetanide 1 MG Tab PO SCH (08:23)
[2023-12-14] MEDS: valACYclovir 1,000 MG Tab PO SCH ×2 (08:23→20:51)
[2023-12-14] MEDS: Finasteride 5 MG Tab PO SCH (08:23)
[2023-12-14] MEDS: atorvaSTATin 40 MG Tab PO SCH (08:23)
[2023-12-14] MEDS: [UNRECOGNIZED DRUG - OTHER] PO SCH (08:25)
[2023-12-14 17:30] LABS: APPEARANCE,URINE CLEAR (CLEAR); BILIRUBIN,URINE NEGATIVE (NEGATIVE); COLOR,URINE DARK YELLOW (YELLOW); GLUCOSE,URINE NEGATIVE (NEGATIVE); KETONES,URINE NEGATIVE (NEGATIVE); LEUKOCYTE ESTERASE,URINE NEGATIVE (NEGATIVE); NITRITE,URINE NEGATIVE (NEGATIVE); OCCULT BLOOD,URINE TRACE-INTACT (NEGATIVE); PH,URINE 6.5 (5.0-8.0); PROTEIN,URINE NEGATIVE (NEGATIVE)
[2023-12-14 17:39] LABS: BACTERIA,URINE NOT SEEN /HPF (NOT SEEN); CALCIUM OXALATE CRYSTALS,URINE RARE /HPF (NOT SEEN); MUCUS,URINE RARE /LPF (NOT SEEN); RBC,URINE 0-5 /HPF (NOT SEEN); SQUAMOUS EPITHELIAL CELLS,UR RARE /HPF (NOT SEEN); WBC,URINE NOT SEEN /HPF (NOT SEEN)
[2023-12-14] MEDS: Metoprolol Tartrate 25 MG Tab PO SCH (20:52)
[2023-12-14] MEDS: Gabapentin 100 MG Cap PO SCH (20:53)
[2023-12-14] MEDS: Tamsulosin 0.4 MG Cap.ER PO SCH (20:53)
[2023-12-15] MEDS: Pantoprazole 40 MG Tab.CR PO SCH (06:30)
[2023-12-15] MEDS: Levothyroxine 25 MCG Tab PO SCH (06:30)
[2023-12-15] MEDS: [UNRECOGNIZED DRUG - OTHER] PO SCH (08:33)
[2023-12-15] MEDS: Spironolactone 25 MG Tab PO SCH (08:34)
[2023-12-15] MEDS: predniSONE 10 MG Tab PO SCH (08:34)
[2023-12-15] MEDS: atorvaSTATin 40 MG Tab PO SCH (08:34)
[2023-12-15] MEDS: Finasteride 5 MG Tab PO SCH (08:34)
[2023-12-15] MEDS: Cyanocobalamin (Vitamin B12) 1,000 MCG Tab PO SCH (08:34)
[2023-12-15] MEDS: Bumetanide 1 MG Tab PO SCH (08:34)
[2023-12-15] MEDS: valACYclovir 1,000 MG Tab PO SCH ×2 (08:34→20:29)
[2023-12-15] MEDS: Cholecalciferol (Vitamin D3) 5,000 UNIT Tab PO SCH (08:35)
[2023-12-15] MEDS: Aspirin 81 MG Tab.EC PO SCH ×2 (08:35→17:56)
[2023-12-15] MEDS: Multivitamin Tab PO SCH (08:35)
[2023-12-15] MEDS: Calcium Carbonate/Vitamin D3 1250 MG-5 MCG Tab PO SCH (08:35)
[2023-12-15] MEDS: Ascorbic Acid 500 MG Tab PO SCH (08:35)
[2023-12-15] MEDS: Tamsulosin 0.4 MG Cap.ER PO SCH (20:28)
[2023-12-15] MEDS: Gabapentin 100 MG Cap PO SCH (20:29)
[2023-12-15] MEDS: Metoprolol Tartrate 25 MG Tab PO SCH (20:30)
[2023-12-16] MEDS: Acetaminophen/HYDROcodone 325-5 MG Tab PO PRN (02:24)
[2023-12-16] MEDS: Levothyroxine 25 MCG Tab PO SCH (06:57)
[2023-12-16] MEDS: Pantoprazole 40 MG Tab.CR PO SCH (06:57)
[2023-12-16 07:04] LABS: HEMATOCRIT 35.2 % (40.0-52.0); HEMOGLOBIN 11.5 g/dL (14.0-18.0); MEAN CORPUSCULAR HEMOGLOBIN 36.5 pg (26.0-32.0); MEAN CORPUSCULAR HGB CONC 32.7 g/dL (32.0-36.0); MEAN CORPUSCULAR VOLUME 111.7 fL (78.0-93.0); PLATELET COUNT,PLT 76 x10^3/uL (130-400); RED BLOOD CELL COUNT 3.15 x10^6/uL (4.5-6.0); WHITE BLOOD CELL COUNT,WBC 16.6 x10^3/uL (4.0-10.0)
[2023-12-16 07:27] LABS: ANISOCYTOSIS 2+ MODERATE; BAND PERCENT MAN 3 % (0-6); LYMPHOCYTES % ATYPICAL MANUAL 9 % (0); LYMPHOCYTES ABSOLUTE MAN 11.5 x10^3/uL (1.0-4.8); LYMPHOCYTES PERCENT MAN 60 % (25-50); MONOCYTES ABSOLUTE MAN 0.7 x10^3/uL (0.0-0.8); MONOCYTES PERCENT MAN 4 % (2-11); NEUTROPHILS ABSOLUTE MAN 4.5 x10^3/uL (1.8-7.7); OVALOCYTES 1+ SLIGHT; PLATELET COUNT ESTIMATE DECREASED; SEG NEUTROPHILS PERCENT MAN 24 % (50-80); SPHEROCYTES 1+ SLIGHT
[2023-12-16] MEDS: [UNRECOGNIZED DRUG - OTHER] PO SCH (09:03)
[2023-12-16] MEDS: Cholecalciferol (Vitamin D3) 5,000 UNIT Tab PO SCH (09:04)
[2023-12-16] MEDS: Ascorbic Acid 500 MG Tab PO SCH (09:04)
[2023-12-16] MEDS: Spironolactone 25 MG Tab PO SCH (09:04)
[2023-12-16] MEDS: Multivitamin Tab PO SCH (09:04)
[2023-12-16] MEDS: Cyanocobalamin (Vitamin B12) 1,000 MCG Tab PO SCH (09:04)
[2023-12-16] MEDS: atorvaSTATin 40 MG Tab PO SCH (09:04)
[2023-12-16] MEDS: Finasteride 5 MG Tab PO SCH (09:04)
[2023-12-16] MEDS: Bumetanide 1 MG Tab PO SCH (09:04)
[2023-12-16] MEDS: predniSONE 10 MG Tab PO SCH (09:04)
[2023-12-16] MEDS: Calcium Carbonate/Vitamin D3 1250 MG-5 MCG Tab PO SCH (09:04)
[2023-12-16] MEDS: Aspirin 81 MG Tab.EC PO SCH ×2 (09:05→17:59)
[2023-12-16] MEDS: valACYclovir 1,000 MG Tab PO SCH ×2 (09:05→20:31)
[2023-12-16] MEDS: Tamsulosin 0.4 MG Cap.ER PO SCH (20:31)
[2023-12-16] MEDS: Metoprolol Tartrate 25 MG Tab PO SCH (20:32)
[2023-12-16] MEDS: Gabapentin 100 MG Cap PO SCH (20:33)
[2023-12-17] MEDS: Levothyroxine 25 MCG Tab PO SCH (06:51)
[2023-12-17] MEDS: Pantoprazole 40 MG Tab.CR PO SCH (06:51)
[2023-12-17] MEDS: Acetaminophen/HYDROcodone 325-5 MG Tab PO PRN (09:10)
[2023-12-17] MEDS: valACYclovir 1,000 MG Tab PO SCH ×2 (09:11→20:27)
[2023-12-17] MEDS: predniSONE 10 MG Tab PO SCH (09:11)
[2023-12-17] MEDS: Cyanocobalamin (Vitamin B12) 1,000 MCG Tab PO SCH (09:11)
[2023-12-17] MEDS: Aspirin 81 MG Tab.EC PO SCH ×2 (09:11→18:15)
[2023-12-17] MEDS: Cholecalciferol (Vitamin D3) 5,000 UNIT Tab PO SCH (09:11)
[2023-12-17] MEDS: Finasteride 5 MG Tab PO SCH (09:12)
[2023-12-17] MEDS: atorvaSTATin 40 MG Tab PO SCH (09:12)
[2023-12-17] MEDS: Calcium Carbonate/Vitamin D3 1250 MG-5 MCG Tab PO SCH (09:12)
[2023-12-17] MEDS: Bumetanide 1 MG Tab PO SCH (09:12)
[2023-12-17] MEDS: Spironolactone 25 MG Tab PO SCH (09:12)
[2023-12-17] MEDS: Ascorbic Acid 500 MG Tab PO SCH (09:12)
[2023-12-17] MEDS: Multivitamin Tab PO SCH (09:12)
[2023-12-17] MEDS: [UNRECOGNIZED DRUG - OTHER] PO SCH (09:13)
[2023-12-17] MEDS: Gabapentin 100 MG Cap PO SCH (20:26)
[2023-12-17] MEDS: Tamsulosin 0.4 MG Cap.ER PO SCH (20:27)
[2023-12-17] MEDS: Metoprolol Tartrate 25 MG Tab PO SCH (20:28)
[2023-12-18] MEDS: Pantoprazole 40 MG Tab.CR PO SCH (06:55)
[2023-12-18] MEDS: Levothyroxine 25 MCG Tab PO SCH (06:55)
[2023-12-18] MEDS: Ondansetron 4 MG Tab.DIS PO PRN (09:29)
[2023-12-18] MEDS: Spironolactone 25 MG Tab PO SCH (10:17)
[2023-12-18] MEDS: Aspirin 81 MG Tab.EC PO SCH ×2 (10:17→18:04)
[2023-12-18] MEDS: atorvaSTATin 40 MG Tab PO SCH (10:17)
[2023-12-18] MEDS: Calcium Carbonate/Vitamin D3 1250 MG-5 MCG Tab PO SCH (10:17)
[2023-12-18] MEDS: predniSONE 10 MG Tab PO SCH (10:18)
[2023-12-18] MEDS: Finasteride 5 MG Tab PO SCH (10:18)
[2023-12-18] MEDS: Bumetanide 1 MG Tab PO SCH (10:18)
[2023-12-18] MEDS: Multivitamin Tab PO SCH (10:18)
[2023-12-18] MEDS: Cholecalciferol (Vitamin D3) 5,000 UNIT Tab PO SCH (10:18)
[2023-12-18] MEDS: Ascorbic Acid 500 MG Tab PO SCH (10:18)
[2023-12-18] MEDS: valACYclovir 1,000 MG Tab PO SCH ×2 (10:18→20:09)
[2023-12-18] MEDS: [UNRECOGNIZED DRUG - OTHER] PO SCH (10:18)
[2023-12-18] MEDS: Cyanocobalamin (Vitamin B12) 1,000 MCG Tab PO SCH (10:18)
[2023-12-18] MEDS: Tamsulosin 0.4 MG Cap.ER PO SCH (20:08)
[2023-12-18] MEDS: Gabapentin 100 MG Cap PO SCH (20:08)
[2023-12-18] MEDS: Metoprolol Tartrate 25 MG Tab PO SCH (20:10)
[2023-12-19] MEDS: Acetaminophen/HYDROcodone 325-5 MG Tab PO PRN ×2 (01:10→20:17)
[2023-12-19] MEDS: Levothyroxine 25 MCG Tab PO SCH (06:11)
[2023-12-19] MEDS: Pantoprazole 40 MG Tab.CR PO SCH (06:12)
[2023-12-19] MEDS: predniSONE 10 MG Tab PO SCH (08:18)
[2023-12-19] MEDS: Calcium Carbonate/Vitamin D3 1250 MG-5 MCG Tab PO SCH (08:18)
[2023-12-19] MEDS: Bumetanide 1 MG Tab PO SCH (08:18)
[2023-12-19] MEDS: Multivitamin Tab PO SCH (08:18)
[2023-12-19] MEDS: Spironolactone 25 MG Tab PO SCH (08:18)
[2023-12-19] MEDS: Ascorbic Acid 500 MG Tab PO SCH (08:19)
[2023-12-19] MEDS: Cyanocobalamin (Vitamin B12) 1,000 MCG Tab PO SCH (08:19)
[2023-12-19] MEDS: Aspirin 81 MG Tab.EC PO SCH ×2 (08:19→18:05)
[2023-12-19] MEDS: Finasteride 5 MG Tab PO SCH (08:19)
[2023-12-19] MEDS: [UNRECOGNIZED DRUG - OTHER] PO SCH (08:19)
[2023-12-19] MEDS: atorvaSTATin 40 MG Tab PO SCH (08:19)
[2023-12-19] MEDS: Cholecalciferol (Vitamin D3) 5,000 UNIT Tab PO SCH (08:19)
[2023-12-19] MEDS: valACYclovir 1,000 MG Tab PO SCH ×2 (08:19→20:17)
[2023-12-19] MEDS: Gabapentin 100 MG Cap PO SCH (20:15)
[2023-12-19] MEDS: Tamsulosin 0.4 MG Cap.ER PO SCH (20:16)
[2023-12-19] MEDS: Metoprolol Tartrate 25 MG Tab PO SCH (20:16)
[2023-12-20] MEDS: Pantoprazole 40 MG Tab.CR PO SCH ×2 (05:26→06:06)
[2023-12-20] MEDS: Levothyroxine 25 MCG Tab PO SCH ×2 (05:28→06:06)
[2023-12-20 07:08] LABS: HEMATOCRIT 34.1 % (40.0-52.0); HEMOGLOBIN 11.3 g/dL (14.0-18.0); MEAN CORPUSCULAR HEMOGLOBIN 37.5 pg (26.0-32.0); MEAN CORPUSCULAR HGB CONC 33.1 g/dL (32.0-36.0); MEAN CORPUSCULAR VOLUME 113.3 fL (78.0-93.0); PLATELET COUNT,PLT 74 x10^3/uL (130-400); RED BLOOD CELL COUNT 3.01 x10^6/uL (4.5-6.0); WHITE BLOOD CELL COUNT,WBC 18.2 x10^3/uL (4.0-10.0)
[2023-12-20 07:35] LABS: ANISOCYTOSIS 2+ MODERATE; BAND PERCENT MAN 2 % (0-6); LYMPHOCYTES % ATYPICAL MANUAL 6 % (0); LYMPHOCYTES ABSOLUTE MAN 12.6 x10^3/uL (1.0-4.8); LYMPHOCYTES PERCENT MAN 63 % (25-50); MONOCYTES ABSOLUTE MAN 0.9 x10^3/uL (0.0-0.8); MONOCYTES PERCENT MAN 5 % (2-11); NEUTROPHILS ABSOLUTE MAN 4.7 x10^3/uL (1.8-7.7); OVALOCYTES 1+ SLIGHT; PLATELET COUNT ESTIMATE DECREASED; SEG NEUTROPHILS PERCENT MAN 24 % (50-80); SPHEROCYTES 1+ SLIGHT
[2023-12-20 07:37] LABS: A/G RATIO 0.96; ALBUMIN 2.5 g/dL (3.4-5.0); CALCIUM 8.4 mg/dL (8.5-10.1); CREATININE 0.8 mg/dL (0.70-1.30); EST CRCL DRUG DOSING (CG) 63.5 mL/min; POTASSIUM,K 4.1 mmol/L (3.5-5.1); PROTEIN TOTAL,TP 5.1 g/dL (6.4-8.2)
[2023-12-20 07:43] LABS: ANION GAP 9.1 mmol/L (5-15)
[2023-12-20] MEDS: [UNRECOGNIZED DRUG - OTHER] PO SCH (08:05)
[2023-12-20] MEDS: Ascorbic Acid 500 MG Tab PO SCH (08:06)
[2023-12-20] MEDS: Multivitamin Tab PO SCH (08:06)
[2023-12-20] MEDS: Aspirin 81 MG Tab.EC PO SCH ×2 (08:06→17:58)
[2023-12-20] MEDS: Calcium Carbonate/Vitamin D3 1250 MG-5 MCG Tab PO SCH (08:06)
[2023-12-20] MEDS: Bumetanide 1 MG Tab PO SCH (08:06)
[2023-12-20] MEDS: Finasteride 5 MG Tab PO SCH (08:06)
[2023-12-20] MEDS: Cyanocobalamin (Vitamin B12) 1,000 MCG Tab PO SCH (08:06)
[2023-12-20] MEDS: Cholecalciferol (Vitamin D3) 5,000 UNIT Tab PO SCH (08:06)
[2023-12-20] MEDS: valACYclovir 1,000 MG Tab PO SCH ×2 (08:06→20:42)
[2023-12-20] MEDS: predniSONE 10 MG Tab PO SCH (08:07)
[2023-12-20] MEDS: atorvaSTATin 40 MG Tab PO SCH (08:07)
[2023-12-20] MEDS: Spironolactone 25 MG Tab PO SCH ×2 (08:07→09:32)
[2023-12-20] MEDS: Acetaminophen/HYDROcodone 325-5 MG Tab PO PRN ×2 (08:13→20:48)
[2023-12-20] MEDS: Tamsulosin 0.4 MG Cap.ER PO SCH (20:42)
[2023-12-20] MEDS: Gabapentin 100 MG Cap PO SCH (20:43)
[2023-12-21] MEDS: Levothyroxine 25 MCG Tab PO SCH (06:24)
[2023-12-21] MEDS: Pantoprazole 40 MG Tab.CR PO SCH (06:24)
[2023-12-21] MEDS: Acetaminophen/HYDROcodone 325-5 MG Tab PO PRN ×2 (06:25→20:33)
[2023-12-21] MEDS: [UNRECOGNIZED DRUG - OTHER] PO SCH (08:38)
[2023-12-21] MEDS: Calcium Carbonate/Vitamin D3 1250 MG-5 MCG Tab PO SCH (08:39)
[2023-12-21] MEDS: Ascorbic Acid 500 MG Tab PO SCH (08:39)
[2023-12-21] MEDS: Finasteride 5 MG Tab PO SCH (08:39)
[2023-12-21] MEDS: valACYclovir 1,000 MG Tab PO SCH ×2 (08:39→20:32)
[2023-12-21] MEDS: Multivitamin Tab PO SCH (08:39)
[2023-12-21] MEDS: Bumetanide 1 MG Tab PO SCH (08:39)
[2023-12-21] MEDS: Cholecalciferol (Vitamin D3) 5,000 UNIT Tab PO SCH (08:39)
[2023-12-21] MEDS: Spironolactone 25 MG Tab PO SCH (08:39)
[2023-12-21] MEDS: Aspirin 81 MG Tab.EC PO SCH ×2 (08:39→18:16)
[2023-12-21] MEDS: Cyanocobalamin (Vitamin B12) 1,000 MCG Tab PO SCH (08:39)
[2023-12-21] MEDS: atorvaSTATin 40 MG Tab PO SCH (08:39)
[2023-12-21] MEDS: predniSONE 10 MG Tab PO SCH (08:39)
[2023-12-21] MEDS: Gabapentin 100 MG Cap PO SCH (20:31)
[2023-12-21] MEDS: Tamsulosin 0.4 MG Cap.ER PO SCH (20:31)
[2023-12-22] MEDS: Levothyroxine 25 MCG Tab PO SCH (06:30)
[2023-12-22] MEDS: Pantoprazole 40 MG Tab.CR PO SCH (06:30)
[2023-12-22] MEDS: [UNRECOGNIZED DRUG - OTHER] PO SCH (08:40)
[2023-12-22] MEDS: Spironolactone 25 MG Tab PO SCH (08:41)
[2023-12-22] MEDS: Aspirin 81 MG Tab.EC PO SCH (08:41)
[2023-12-22] MEDS: Bumetanide 1 MG Tab PO SCH (08:41)
[2023-12-22] MEDS: Ascorbic Acid 500 MG Tab PO SCH (08:41)
[2023-12-22] MEDS: atorvaSTATin 40 MG Tab PO SCH (08:41)
[2023-12-22] MEDS: valACYclovir 1,000 MG Tab PO SCH (08:41)
[2023-12-22] MEDS: Multivitamin Tab PO SCH (08:41)
[2023-12-22] MEDS: Cholecalciferol (Vitamin D3) 5,000 UNIT Tab PO SCH (08:41)
[2023-12-22] MEDS: Calcium Carbonate/Vitamin D3 1250 MG-5 MCG Tab PO SCH (08:41)
[2023-12-22] MEDS: predniSONE 10 MG Tab PO SCH (08:41)
[2023-12-22] MEDS: Finasteride 5 MG Tab PO SCH (08:42)
[2023-12-22] MEDS: Cyanocobalamin (Vitamin B12) 1,000 MCG Tab PO SCH (08:42)
[2023-12-22 11:19] VITALS: BP 103/60; PULSE 95
== END 2023-12-22 11:30 | disposition home health service (06) | DRG 560 ==
LOC: VM.MS 11:40 → UNDOADMIN 11:48 → VM.MS 11:48 → UNDOADMIN 12-06 11:40 → VM.MS 12-06 11:40
PROVIDERS: ADMIT Internal Medicine; ATTEND Internal Medicine
DX: S72.001D Fracture of unspecified part of neck of right femur, subsequent encounter for closed fracture with routine healing (principal); C91.10 Chronic lymphocytic leukemia of B-cell type not having achieved remission; E44.0 Moderate protein-calorie malnutrition; I50.32 Chronic diastolic (congestive) heart failure; D84.9 Immunodeficiency, unspecified; K74.60 Unspecified cirrhosis of liver; I95.2 Hypotension due to drugs; G89.29 Other chronic pain; M54.9 Dorsalgia, unspecified; G70.00 Myasthenia gravis without (acute) exacerbation; K21.9 Gastro-esophageal reflux disease without esophagitis; D69.6 Thrombocytopenia, unspecified; I48.0 Paroxysmal atrial fibrillation; N40.0 Benign prostatic hyperplasia without lower urinary tract symptoms; J44.9 Chronic obstructive pulmonary disease, unspecified; E03.9 Hypothyroidism, unspecified; G47.33 Obstructive sleep apnea (adult) (pediatric); Z96.652 Presence of left artificial knee joint; I25.10 Atherosclerotic heart disease of native coronary artery without angina pectoris; M19.90 Unspecified osteoarthritis, unspecified site; I11.0 Hypertensive heart disease with heart failure; Z87.442 Personal history of urinary calculi; Z98.890 Other specified postprocedural states; Z88.8 Allergy status to other drugs, medicaments and biological substances; Z95.1 Presence of aortocoronary bypass graft; Z79.899 Other long term (current) drug therapy; Z90.89 Acquired absence of other organs; Z90.49 Acquired absence of other specified parts of digestive tract
CPT/HCPCS: 36415; 51798; 80053; 81001; 82140; 82947; 85025; 95851-GO; 97110-GP; 97116-GP; 97161-GP; 97166-GO; 97535-GO; A9270-GY; J7512; Q0164

== ENCOUNTER 2024-05-21 16:02 | Emergency (ER) | payer MEDICARE, BC ==
[2024-05-21] MEDS: cefTRIAXone 2 GM, Lidocaine 1% 4.2 ML IM ONE (16:53)
[2024-05-21] MEDS: Take Home: Sulfamethoxazole/Trimethoprim 800-160 MG Tab, 6 Tab Pack PO ONE (16:56)
[2024-05-21 17:25] VITALS: BP 106/53; PULSE 87
== END 2024-05-21 17:05 | disposition home or self-care (01) ==
LOC: VM.ED 16:02
DX: L03.115 Cellulitis of right lower limb (principal); L03.116 Cellulitis of left lower limb; I11.0 Hypertensive heart disease with heart failure; I50.9 Heart failure, unspecified; I48.91 Unspecified atrial fibrillation; J44.9 Chronic obstructive pulmonary disease, unspecified; E11.9 Type 2 diabetes mellitus without complications; Z79.82 Long term (current) use of aspirin; Z79.899 Other long term (current) drug therapy; Z90.49 Acquired absence of other specified parts of digestive tract
CPT/HCPCS: 96372; 99283; J0696; J3490

== ENCOUNTER 2024-09-04 09:01 | Inpatient (IN) | payer MEDICARE, BC ==
[2024-09-04] MEDS: Sodium Chloride 0.9% 500 ML IV ONE (09:05)
[2024-09-04] MEDS ORDERED: Sodium Chloride 0.9% 10 ML Syringe FLUSH PRN (09:08)
[2024-09-04 09:24] LABS: HEMATOCRIT 44.7 % (40.0-52.0); HEMOGLOBIN 12.7 g/dL (14.0-18.0); MEAN CORPUSCULAR HEMOGLOBIN 27.4 pg (26.0-32.0); MEAN CORPUSCULAR HGB CONC 28.4 g/dL (32.0-36.0); MEAN CORPUSCULAR VOLUME 96.5 fL (78.0-93.0); PLATELET COUNT,PLT 179 x10^3/uL (130-400); RED BLOOD CELL COUNT 4.63 x10^6/uL (4.5-6.0)
[2024-09-04 09:28] LABS: WHITE BLOOD CELL COUNT,WBC 61.1 x10^3/uL (4.0-10.0)
[2024-09-04 09:31] LABS: LYMPHOCYTES % ATYPICAL MANUAL 14 % (0); LYMPHOCYTES ABSOLUTE MAN 41.5 x10^3/uL (1.0-4.8); LYMPHOCYTES PERCENT MAN 54 % (25-50); MONOCYTES ABSOLUTE MAN 1.2 x10^3/uL (0.0-0.8); MONOCYTES PERCENT MAN 2 % (2-11); NEUTROPHILS ABSOLUTE MAN 18.3 x10^3/uL (1.8-7.7); SEG NEUTROPHILS PERCENT MAN 30 % (50-80)
[2024-09-04 09:32] LABS: ANISOCYTOSIS 1+ SLIGHT; HYPOCHROMASIA 1+ SLIGHT; PLATELET COUNT ESTIMATE ADEQUATE; TOXIC GRANULATION FEW
[2024-09-04 09:41] LABS: A/G RATIO 0.86; ALANINE AMINOTRANSFERASE,ALT 83 U/L (16-63); ALKALINE PHOSPHATASE 111 U/L (46-116); ASPARTATE AMNIOTRANSFERASE,AST 62 U/L (15-37); BILIRUBIN TOTAL 0.7 mg/dL (0.2-1.0); BLOOD UREA NITROGEN,BUN 19 mg/dL (7-18); CALCIUM 9.3 mg/dL (8.5-10.1); CARBON DIOXIDE,CO2 38 mmol/L (21-32); CHLORIDE,CL 101 mmol/L (98-107); GLUCOSE RANDOM 136 mg/dL (70-99); POTASSIUM,K 4.7 mmol/L (3.5-5.1); PROTEIN TOTAL,TP 6.5 g/dL (6.4-8.2); SODIUM,NA 140 mmol/L (136-145)
[2024-09-04 09:43] LABS: APPEARANCE,URINE CLEAR (CLEAR); BILIRUBIN,URINE NEGATIVE (NEGATIVE); COLOR,URINE DARK YELLOW (YELLOW); GLUCOSE,URINE NEGATIVE (NEGATIVE); KETONES,URINE NEGATIVE (NEGATIVE); LEUKOCYTE ESTERASE,URINE NEGATIVE (NEGATIVE); NITRITE,URINE NEGATIVE (NEGATIVE); OCCULT BLOOD,URINE SMALL (NEGATIVE); PH,URINE 5.5 (5.0-8.0); PROTEIN,URINE 100 mg/dL (NEGATIVE); UROBILINOGEN,URINE 0.2 EU/dL (0.2)
[2024-09-04 09:43] LABS: ANION GAP 5.7 mmol/L (5-15); ESTIMATED GFR 73 mL/min (>=60)
[2024-09-04 09:48] LABS: BACTERIA,URINE RARE /HPF (NOT SEEN); GRANULAR CASTS,URINE FEW; HYALINE CASTS,URINE MODERATE; MUCUS,URINE OCCASIONAL /LPF (NOT SEEN); SQUAMOUS EPITHELIAL CELLS,UR NOT SEEN /HPF (NOT SEEN); WBC,URINE 0-5 /HPF (NOT SEEN)
[2024-09-04] MEDS: Piperacillin/Tazobactam 4.5 GM in Sodium Chloride 0.9% 100 ML IV ONE (11:18)
[2024-09-04] MEDS: Hydrocortisone Sodium Succinate 100 MG/2 ML SDV IVPUSH SCH ×2 (11:38→22:01)
[2024-09-04 12:11] LABS: HCO3 VENOUS,POC 34 mmol/L (22-29); O2 SATURATION VENOUS,POC 83 %; PCO2 VENOUS,POC 82 mmHg (41-51); PH VENOUS,POC 7.22 pH (7.32-7.43); PO2 VENOUS,POC 59 mmHg
[2024-09-04] MEDS ORDERED: Acetaminophen 325 MG Tab PO PRN (12:35)
[2024-09-04] MEDS ORDERED: Glycopyrrolate 1 MG Tab PO PRN (12:35)
[2024-09-04] MEDS ORDERED: Docusate Sodium 100 MG Cap PO PRN (12:35)
[2024-09-04] MEDS ORDERED: Hypromellose 0.3% Ophth Soln 15 ML Bottle EYEBOTH PRN (12:49)
[2024-09-04] MEDS ORDERED: Morphine Oral Concentrate 20 MG/ML 30 ML Bottle PO PRN (12:50)
[2024-09-04] MEDS ORDERED: Ondansetron 4 MG/2 ML SDV IVPUSH PRN (12:57)
[2024-09-04] MEDS: Albuterol/Ipratropium 3.0-0.5 MG/3 ML Neb Soln NEB SCH (13:19)
[2024-09-04] MEDS: Pantoprazole 40 MG Vial IVPUSH SCH ×2 (13:39→13:43)
[2024-09-04] MEDS: Aluminum Hydroxide/Magnesium Hydroxide/Simethicone Susp 30 ML Cup PO SCH (13:39)
[2024-09-04] MEDS: Sodium Chloride 0.9% 1,000 ML IV SCH (13:39)
[2024-09-04] MEDS: Piperacillin/Tazobactam 4.5 GM in Sodium Chloride 0.9% 100 ML IV SCH (14:09)
[2024-09-04] MEDS: HYDROmorphone 0.5 MG/0.5 ML Syringe IVPUSH PRN (16:29)
[2024-09-04] MEDS: valACYclovir 1,000 MG Tab PO SCH (21:17)
[2024-09-04] MEDS: Gabapentin 100 MG Cap PO SCH (21:17)
[2024-09-05 06:04] VITALS: BP 68/33; PULSE 93
[2024-09-05 06:47] LABS: HEMATOCRIT 44.1 % (40.0-52.0); HEMOGLOBIN 11.9 g/dL (14.0-18.0); MEAN CORPUSCULAR HEMOGLOBIN 27.9 pg (26.0-32.0); MEAN CORPUSCULAR VOLUME 103.3 fL (78.0-93.0); PLATELET COUNT,PLT 165 x10^3/uL (130-400); RED BLOOD CELL COUNT 4.27 x10^6/uL (4.5-6.0)
[2024-09-05 06:52] LABS: WHITE BLOOD CELL COUNT,WBC 114.6 x10^3/uL (4.0-10.0)
[2024-09-05 07:12] LABS: A/G RATIO 0.76; ALBUMIN 2.6 g/dL (3.4-5.0); BILIRUBIN TOTAL 0.7 mg/dL (0.2-1.0); CREATININE 1.8 mg/dL (0.70-1.30); EST CRCL DRUG DOSING (CG) 32.02 mL/min
[2024-09-05 07:24] LABS: ANISOCYTOSIS 1+ SLIGHT; LYMPHOCYTES % ATYPICAL MANUAL 12 % (0); LYMPHOCYTES ABSOLUTE MAN 66.5 x10^3/uL (1.0-4.8); LYMPHOCYTES PERCENT MAN 46 % (25-50); MONOCYTES ABSOLUTE MAN 3.4 x10^3/uL (0.0-0.8); MONOCYTES PERCENT MAN 3 % (2-11); NEUTROPHILS ABSOLUTE MAN 44.7 x10^3/uL (1.8-7.7); PLATELET COUNT ESTIMATE ADEQUATE; SEG NEUTROPHILS PERCENT MAN 39 % (50-80); TOXIC GRANULATION FEW
[2024-09-05] MEDS ORDERED: Finasteride 5 MG Tab PO SCH (09:00)
[2024-09-05] MEDS ORDERED: VANCOMYCIN 1.5 GM/300 ML IV SCH (10:00)
[2024-09-07] MEDS ORDERED: FLU (Fluad Triv) TS24-25 (65UP)/MF59C/PF 45 MCG/0.5 ML Syringe IM ONE (10:00)
== END 2024-09-05 10:30 | disposition expired | DRG 56 ==
LOC: VM.ED 09:01 → VM.MS 11:49
PROVIDERS: ADMIT Internal Medicine; ATTEND Internal Medicine
PROC: 5A0935A Assistance with Respiratory Ventilation, Less than 24 Consecutive Hours, High Flow/Velocity Cannula (ICD-10-PCS; principal; 2024-09-05)
DX: R53.1 Weakness (principal); G70.01 Myasthenia gravis with (acute) exacerbation; J18.9 Pneumonia, unspecified organism; J44.9 Chronic obstructive pulmonary disease, unspecified; J96.01 Acute respiratory failure with hypoxia; E11.9 Type 2 diabetes mellitus without complications; J96.02 Acute respiratory failure with hypercapnia; Z79.899 Other long term (current) drug therapy; J69.0 Pneumonitis due to inhalation of food and vomit; C91.10 Chronic lymphocytic leukemia of B-cell type not having achieved remission; J44.1 Chronic obstructive pulmonary disease with (acute) exacerbation; C78.7 Secondary malignant neoplasm of liver and intrahepatic bile duct; C18.9 Malignant neoplasm of colon, unspecified; E46 Unspecified protein-calorie malnutrition; J44.0 Chronic obstructive pulmonary disease with (acute) lower respiratory infection; Z66 Do not resuscitate; Z51.5 Encounter for palliative care; I25.10 Atherosclerotic heart disease of native coronary artery without angina pectoris; T38.0X5A Adverse effect of glucocorticoids and synthetic analogues, initial encounter; N40.1 Benign prostatic hyperplasia with lower urinary tract symptoms; K21.9 Gastro-esophageal reflux disease without esophagitis; D63.0 Anemia in neoplastic disease; G47.33 Obstructive sleep apnea (adult) (pediatric); I11.0 Hypertensive heart disease with heart failure; I73.9 Peripheral vascular disease, unspecified; E78.00 Pure hypercholesterolemia, unspecified; N39.498 Other specified urinary incontinence; K74.60 Unspecified cirrhosis of liver; G62.9 Polyneuropathy, unspecified; R53.82 Chronic fatigue, unspecified; I48.0 Paroxysmal atrial fibrillation; R73.9 Hyperglycemia, unspecified; M54.50 Low back pain, unspecified; I95.9 Hypotension, unspecified; I50.9 Heart failure, unspecified; H26.9 Unspecified cataract; G89.29 Other chronic pain; L57.0 Actinic keratosis; Z96.659 Presence of unspecified artificial knee joint; Z90.49 Acquired absence of other specified parts of digestive tract; Z86.19 Personal history of other infectious and parasitic diseases; Z86.0100 Personal history of colon polyps, unspecified; Z79.52 Long term (current) use of systemic steroids; Z79.891 Long term (current) use of opiate analgesic; Z95.1 Presence of aortocoronary bypass graft; Z87.11 Personal history of peptic ulcer disease; Z98.890 Other specified postprocedural states; Z90.89 Acquired absence of other organs
CPT/HCPCS: 36415; 71045; 80053; 81001; 83605; 85025; J1720; J2543; J3370; J3490; J7030; J7050; 80202; 82140; 82803; 82947; 84145; 86140; 87428-QW; 94640; 94760; 99284; J1171; J2470; J7620-GY